=== PATIENT | female | born 1975 | race Caucasian/White ===

== ENCOUNTER 2022-04-30 15:03 | Outpatient (CLI) | payer BC, SELFPAY ==
[2022-04-30 22:06] LABS: C Reactive Protein* < 0.5 mg/dL (0.5-1.0)
== END 2022-04-30 15:04 | disposition home or self-care (01) ==
LOC: LKVREF 15:05
PROVIDERS: PCP Emergency Medicine; Visit Provider Emergency Medicine
DX: R07.81 Pleurodynia (principal)
CPT/HCPCS: 86140

== ENCOUNTER 2022-12-11 12:49 | Outpatient (CLI) | payer BC, SELFPAY ==
--- NOTE | 2022-12-11 13:00 | CRLHL7_ITS ---
For Patients: As a result of the Century Cures Act, medical imaging exams and procedure reports are released immediately into your electronic medical record. You may view this report before your referring provider. If you have questions, please contact your health care provider. INDICATION: Neck pain. Cervical radiculopathy. TECHNIQUE: Noncontrast sagittal T1, T2, STIR and axial GRE sequences are provided. No comparisons. FINDINGS: The overall stature, alignment and intrinsic marrow signal of the cervical spine is within normal limits. Cervical cord is normal. C2-3, C3-4, C4-5: Unremarkable. C5-6: Mild disc osteophyte complex results in mild central canal narrowing. Moderate bilateral foraminal narrowing due to uncovertebral joint facet arthropathy. C6-7: Asymmetric uncovertebral joint and facet arthropathy results in mild to moderate left and no right foraminal narrowing. No central canal narrowing. C7-T1: Unremarkable. IMPRESSION: 1. Mild central canal narrowing with moderate bilateral foraminal narrowing at C5-6. 2. Mild to moderate left C6-7 foraminal narrowing. Dictated by Chidi Kennedy MD @ 12/11/2022 3:50:42 PM (Electronically Signed)
== END 2022-12-11 12:50 | disposition home or self-care (01) ==
LOC: MRI 12:50
PROVIDERS: Visit Provider Internal Medicine
DX: M54.12 Radiculopathy, cervical region (principal); M50.223 Other cervical disc displacement at C6-C7 level; M50.222 Other cervical disc displacement at C5-C6 level
CPT/HCPCS: 72141

== ENCOUNTER 2023-04-06 09:25 | Outpatient (CLI) | payer BC, SELFPAY ==
--- OUTSIDE RECORDS SUMMARY | 2023-04-06 09:29 | XMS_ITS | Continuity of Care Document ---
Author Name Unknown Organization [facility] Address [address] [place] [address] Phone Care Team Providers Care Ignition Expert Name Role Phone Dc Laguna MD Unavailable Unavailable Procedures Procedure Date Office/Outpatient Visit,[facility] 2022 Advance Directives Directive Yes / No Effective Date File Name No Information Encounters Encounter Description Practice Location Reason(s) For Visit Diagnoses Date Provider Providers Copied on Encounter Office/Outpat ient Visit,[facility], [address], [place], [place], [id number], [place] tel:[phone] [facility] Other cervical disc displacement, cervicothoracic region 3 Jase Irwin. [facility], [address] [place] [address], [address], [id number] , [place]. tel:[phone] [facility] [address], [address]. tel:[phone] Family History Family Member Type Diagnosis Age At Onset No Information Payers Payer name Insurance type Covered democrat ID Authoriza tion(s) [facility] Federal BL [id number] Social History Type Description Quantity Date Captured Comments Sex Female Smoking Status No Information Vital Signs Date / Time: Height Weight BMI Pulse Rate Blood Pressure Temperature Respiratory Rate Body Surface Area Head Circumference Head Circ. Percentile Wt./Rohit. Percentile BMI percentile Pulse Ox Inhaled Ox 2:17 PM 66.00 in 74.843 kg (165.00 lbs) 26.6 3 kg/m eter (2) Chief Complaint And Reason For Visit No Information Reason For Referral Reason For Referral No Information History Of Present Illness Encounter Date Complaint History Of Prese nt Illness No Information Functional Status Date Functional Assessmen t No Information Instructions Date Instruction Additional Infor mation No Information Assessments Type Assessment Date No Information Patient Care Teams Name Effective Dates (start - stop) Status Members No Information
--- OUTSIDE RECORDS SUMMARY | 2023-04-06 09:29 | XMS_ITS | Continuity of Care Document ---
Author Name Unknown Organization [facility] Address [address] [address] Phone Care Team Providers Care Junior Graphic Designer Name Role Phone Clarence Carson MD Unavailable Unavailable Procedures Procedure Date Ophth Serv: Med Exam; Interm E Ophth Serv: Exam-eval; Interme 06 Advance Directives Directive Yes / No Effective Date File Name Resuscitation Not Answered N/A N/A Life Support Not Answered N/A N/A Intubation Not Answered N/A N/A Antibiotics Not Answered N/A N/A IV Fluid Support Not Answered N/A N/A Tube Feed Not Answered N/A N/A Other Directive N/A N/A WARNING:The information contained in this section is historical and is provided for information only and does not constitute a legal document or any assurance that the information is still accurate. Please verify the information with the laguerre of the legal document before using it for clinical purposes. Encounters Encounter Description Practice Location Reason(s) For Visit Diagnoses Date Provider Providers Copied on Encounter [facility], [address] [place] [address], [id number], tel:[phone] [facility] No Information Yamileth Lima. [address] [place] [address], [id number], [place]. tel:[phone], [id number], [place] tel:[phone] [facility] No Information Yamileth Lima. [address] [place] [address], [id number], [place]. tel:[phone] Family History Family Member Type Diagnosis Age At Onset Problem (finding) Family history of No known significant family history Payers Payer name Insurance type Covered alliance party ID Marcela corona(s) [facility] [id number] Social History Type Description Quantity Date Captured Comments Alcohol Use Details Unknown Caffeine Use Details Unknown Tobacco Use Status No Information Smoking Status No Information Sex Female Chief Complaint And Reason For Visit No Information Reason For Referral Reason For Referral No Information History Of Present Illness Encounter Date Complaint History Of Prese nt Illness No Information Functional Status Date Functional Assessmen t No Information Instructions Date Instruction Additional Infor mation Dry Eye Syndrome, OU - Inserted punctal plugs without any complications. Pt to use Tobradex ou qid. Related to Dry Eye Syndrome Dry Eye Syndrome, OU - unstable - Discussed diagnosis in detail with patient. Discussed treatment options with patient. Discussed restasis and punctal plugs at length. Dr. Carson recommend punctal plugs. Patient showed interest in corrective vision sx. Discussed that a previous doctor said corneas were too thin for LASIK, Dr. Carson explained PRK. Will continue to observe condition and or symptoms. Patient instructed to call if condition gets worse. Related to Dry Eye Syndrome Assessments Type Assessment Date No Information Patient Care Teams Name Effective Dates (start - stop) Status Members No Information
== END 2023-04-06 09:26 | disposition home or self-care (01) ==
PROVIDERS: PCP Family Medicine; Visit Provider Family Medicine
DX: R73.9 Hyperglycemia, unspecified (principal); K90.0 Celiac disease; R53.83 Other fatigue; R94.5 Abnormal results of liver function studies; Z13.220 Encounter for screening for lipoid disorders
CPT/HCPCS: 80053; 80061; 82306; 82607; 82728; 84443

== ENCOUNTER 2023-06-22 14:15 | Outpatient (CLI) | payer BC, SELFPAY ==
--- NOTE | 2023-06-22 14:40 | MM_ITS ---
Patient: DANIEL JOHNSON Facility:?[facility] Patient ID:?[id number] Site Patient ID:?[id number] Site :?1975 Study:?XRay-Breast Bilateral 3D W/CAD-06/22/2023 2:17:20 PM Ordering Physician:Alex Final Report: BILATERAL SCREENING MAMMOGRAM WITH COMPUTER-AIDED DETECTION AND TOMOSYNTHESIS TECHNIQUE: CC and MLO views were obtained. These mammographic images have been obtained using full-field digital technique. These mammographic images were interpreted with the benefit of computer-aided detection. Breast Tomosynthesis was used in this interpretation. COMPARISON FILM: 06/24/22, 04/07/21, 01/29/20. FINDINGS: There are scattered areas of fibroglandular density. IMPRESSION: There is no radiographic evidence for malignancy. ASSESSMENT: BI-RADS Category 1: Negative RECOMMENDATION: Routine screening mammogram in 1 year. A lay language report of this examination will be provided to the patient. Damon Maguire M.D. Diagnostic Radiologist [email or web address] DSM/sp R& Transcribed: 1:37 p.m. SP/Dictated by: Damon Maguire MD @ 06/29/2023 9:21:00 AM Signed by:?Damon Maguire MD @06/29/2023 1:45:45 PM (Electronic Signature)
== END 2023-06-22 14:16 | disposition home or self-care (01) ==
LOC: MAMMO 14:16
PROVIDERS: PCP Internal Medicine; Visit Provider Internal Medicine
DX: Z12.31 Encounter for screening mammogram for malignant neoplasm of breast (principal)
CPT/HCPCS: 77063; 77067

== ENCOUNTER 2023-07-19 08:09 | Outpatient (CLI) | payer BC, SELFPAY ==
--- OUTSIDE RECORDS SUMMARY | 2023-07-19 08:12 | XMS_ITS | Referral Summary ---
Author Name Unknown Organization [facility] Address [address] [place] [address] Care Team Providers Care Binding Nicker Name Role Phone Elsewhere, Pcp Primary Care Provider Unavailabl e Source Comments Patient records contain information from all sites at [facility]. For routine questions regarding patient records, call [phone] during business hours, M-F 8:00 AM - 5:00 PM Central Time. Record requests for emergency care only can be directed to [phone] at any time.[facility] Encounters Date Type Department Care Team Description 05/27/2023 Orders Only Division of Gastroenterology in [place], [place] [address] [place] [address] Jayden Vieyra M.D. Genetic Susceptibility To Disease from Last 3 Months Allergies Active Allergy Reactions Criticality Noted Date Comments Bee Venom Protein (Honey Bee) Hives (Reselect Reaction) High 09/26/2018 Medications Medication Sig Dispensed Refills Start Date End Date Status EPINEPHrine (EPIPEN) 0.3 mg/0.3 mL injection syringe Inject 0.3 mg intramuscularly as needed for anaphylaxis. Inject into the thigh. 0 Active linaCLOtide (Linzess) 72 mcg capsule Take 1 capsule (72 mcg total) by mouth every morning before breakfast. May escalate to 2/day if no effect 45 capsule 11 11/19/2021 Active citalopram (CeleXA) 20 mg tablet Take 20 mg by mouth daily. 30 mg // tabs daily 0 10/30/2022 Active testosterone (testoserone in Vanicream) Apply 10 mg of testosterone topically daily. 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 12/27/2018 Incontinence Urinary Stress And Urge 12/26/2018 Cystocele Rectocele With Uterine Prolapse 2018 Celiac Disease 03/30/2016 Immunizations Name Administration Dates Next Due HepA Adult 02/18/1996 HepA, Unspecified 02/18/1996,12/16/1993 HepB Adult 02/18/1996,05/13/1994,12/16/1993 HepB, Unspecified 02/18/1996,05/13/1994 Influenza (IM) Preservative Free 02/14/2013,04/13 Influenza, Unspecified 02/14/2013,05/04/2012 MMR 12/21/1990 SARS-COV-2 (COVID-19) - EMIGDIO ELIZABETH (J&J)(Discontinued) 06/24/2020 Td (Adult), adsorbed 05/21/2006 Td Preservative Free (TENIVAC, DECAVAC) 05/21/19 07 Tdap 01/31/2016,10/21/2012 Social History Tobacco Use Types Packs/Day Years Used Date Smoking Tobacco: Never Smokeless Tobacco: Never Tobacco Cessation:Counseling Given: Not Answered Alcohol Use Standard Drinks/Week Comments Yes 1 (1 standard drink = 0.6 oz pur e alcohol) Humiliation, Afraid, Rape, and Kick questionnair e Answer Date Recorded Within the last year, have y ou been afraid of your partner or ex-partner? No 11/19/2021 Within the last year, have y ou been humiliated or emotionally abused in other ways by your partner or ex-partner? No Within the last year, have y ou been kicked, hit, slapped, or otherwise physically hurt by your partner or ex-partner? No 11/19/2021 Within the last year, have y ou been raped or forced to have any kind of sexual activity by your partner or ex-partner? No 11/19/2021 Social Connection and Isolat ion Panel [NHANES] Answer Date Recorded In a typical week, how many times do you talk on the phone with family, friends, or neighbors? More than three times a week 11/19/2021 How often do you get togethe r with friends or relatives? More than three times a week 11/19/2021 Attends Faith Services Not on file 11/19 Do you belong to any clubs o r organizations such as nondenominational groups, unions, fraternal or athletic groups, or school groups? Yes 11/19/2021 How often do you attend meet ings of the clubs or organizations you belong to? Never 11/19/2021 Are you , , di vorced, , never , or living with a partner? 11/19/2021 AUDIT-C Answer Date Recorded Q1: How often do you have a drink containing alc ohol? Monthly or less 11/19/2021 Q2: How many drinks containi ng alcohol do you have on a typical day when you are drinking? 1 or 2 11/19/2021 Q3: How often do you have si x or more drinks on one occasion? Never 11/19/2021 Overall Financial Resource Strain (CARDIA) Answe r Date Recorded How hard is it for you to pa y for the very basics like food, housing, medical care, and heating? Not hard at all 11/19/2021 [facility] - Occupational Stress Questionnaire Answer Date Recorded Do you feel stress - tense, restless, nervous, or anxious, or unable to sleep at night because your mind is troubled all the time - these days? Rather much 11/19/2021 Exercise Vital Sign Answer Date Recorde d On average, how many days pe r week do you engage in moderate to strenuous exercise (like a brisk walk)? 4 days 11/19/2021 On average, how many minutes do you engage in exercise at this level? 30 min 11/19/2021 Hunger Vital Sign Answer Date Recorded Within the past 12 months, y ou worried that your food would run out before you got the money to buy more. Never true 11/20/19 22 Within the past 12 months, t he food you bought just didn't last and you didn't have money to get more. Never true 11/19/2021 PRAPARE - Transportation Answer Date Re corded In the past 12 months, has l ack of transportation kept you from medical appointments or from getting medications? No 11/10 In the past 12 months, has l ack of transportation kept you from meetings, work, or from getting things needed for daily living? No 11/19/2021 Housing Stability Vital Sign Answer Colin e Recorded In the last 12 months, was t here a time when you were not able to pay the mortgage or rent on time? No 11/19/2021 In the last 12 months, how many places have you lived? 1 11/19/2021 In the last 12 months, was t here a time when you did not have a steady place to sleep or slept in a care home (including now)? No 11/19/2021 Nutrition Answer Date Recorded Nutrition: EVOO Fat Source Yes 11/19 On average, how many serving s of fruits and vegetables do you eat per day (serving size is equal to 1 cup or approximately the size of a tennis ball)? 2-3 11/19/2021 Dental Answer Date Recorded Dental: Regular Dentist Yes 11/20/19 Employment Answer Date Recorded Employment status Employed and actively working without restrictions 11/19/2021 Education Answer Date Recorded What is the highest level of school you have completed or the highest degree you have received? Associate degree: academic program 02/21/2020 Sex and Gender Information Value Date Recorded Sex Assigned at Female 04/29/2018 7:45 PM FIRE CONTROL TECHNICIAN G Gender Identity Female 04/29/2018 7:45 PM FIRE CONTROL TECHNICIAN G Sexual Orientation Straight 04/29/2018 7: 45 PM FIRE CONTROL TECHNICIAN G Last Filed Vital Signs Vital Sign Reading Time Taken Comments Blood Pressure 109/71 11/06/2022 9:06 AM CDT Pulse 73 11/06/2022 9:06 AM CDT Temperature 36.8 ??C (98.2 ??F) 11/06/2022 9:06 AM CD T Respiratory Rate 16 11/05/2020 1:54 PM CDT Oxygen Saturation 99% 11/06/2022 9:06 AM CDT Inhaled Oxygen Concentration - - Weight 77.6 kg (171 lb 1.2 oz) 11/06/2022 9:06 A M CDT Height 169.3 cm (5' 6.65) 11/06/2022 9:06 AM CD T Body Mass Index 27.07 11/06/2022 9:06 AM CDT Plan of Treatment Not on file Medical Devices Implanted Type Area Wire Strander Device Identifier Shelf Expiration Date Model / Serial / Lot [facility] Ult [employer] 6x6 - [id number] Implanted:Qty: 1 on 12/26/2018 by Nicholas Parsons M.D. at [facility] Mesh or Patch [employer] 11/10/2023 [id number] / / [id number] Sling Transvag Mid-Ureth Quang - [id number] Implanted:Qty: 1 on 12/26/2018 by Nicholas Parsons M.D. at [facility] Mesh or Patch [employer] 09/29/2021 [id number] / / [id number] Advance Directives For more information, please contact: [phone] Documents on File Type Date Recorded Patient Grocery Buyer Expl anation Advance Directives 10/11/2009 12:00 AM Lega judy document. See document viewer. * Full Code (Latest Code Status on File) Date Activated Date Inactivated Comments 12/26/2018 4:30 PM 12/27/2018 7:44 PM Question Answer Comments Full Code: Discussed Care Teams Binding Nicker Relationship Specialty Start Date End Date Elsewhere, Pcp PCP - General Internal Medicine 10/28/18
--- OUTSIDE RECORDS SUMMARY | 2023-07-19 08:12 | XMS_ITS | Encounter Summary ---
Author Name Unknown Organization [facility] Address [address] [place] [address] Care Team Providers Care Knitting Machine Tender Name Role Phone Elsewhere, Pcp Primary Care Provider Unavailabl e Encounter Details Date Type Department Care Team (Late st Contact Info) Description 05/14/2008 Historical Ophthalmology RST OPH Darlene Wei O.D. [address] [place] [address] Social History Tobacco Use Types Packs/Day Years Used Date Smoking Tobacco: Never Assessed Sex and Gender Information Value Date Recorded Sex Assigned at Female 04/29/2018 7:45 PM MEDICAL SALES CONSULTANT Gender Identity Female 04/29/2018 7:45 PM MEDICAL SALES CONSULTANT Sexual Orientation Straight 04/29/2018 7: 45 PM MEDICAL SALES CONSULTANT documented as of this encounter Progress Notes * Darlene Wei O.D. - 05/14/2008 1:43 PM CST Contact Lens Exam MULTI-VISIT DOCUMENT This document contains multiple patient visits and is available for review in Document Viewer. CDM Reports - EYECL Id: [id number] Status: Fnl documented in this encounter Plan of Treatment Not on file documented as of this encounter Visit Diagnoses Not on filedocumented in this encounter Care Teams Knitting Machine Tender Relationship Specialty Start Date End Date Elsewhere, Pcp PCP - General Internal Medicine 10/28/18 documented as of this encounter
--- OUTSIDE RECORDS SUMMARY | 2023-07-19 08:12 | XMS_ITS | Clinical Summary ---
Author Name Unknown Organization [facility] Address [address] [place] [address] Care Team Providers Care Weight Reducing Technician Name Role Phone Elsewhere, Pcp Primary Care Provider Unavailabl e Source Comments Patient records contain information from all sites at [facility]. For routine questions regarding patient records, call [phone] during business hours, M-F 8:00 AM - 5:00 PM Central Time. Record requests for emergency care only can be directed to [phone] at any time.[facility] Allergies Active Allergy Reactions Criticality Noted Date [...] With Uterine Prolapse 2018 Celiac Disease 03/30/2016 Encounters Date Type Department Care Team Description 05/27/2023 Orders Only Division of Gastroenterology in [place], [place] [address] [place] [address] Jayden Vieyra M.D. Genetic Susceptibility To Disease from Last 3 Months Immunizations Name Administration Dates Next Due HepA [...] than three times a week 11/19/2021 Attends Taoism Services Not on file 11/19 Do you belong to any clubs o r organizations such as methodist groups, unions, fraternal or athletic groups, or [...] and heating? Not hard at all 11/19/2021 [facility] - Occupational Stress [...] Sex Assigned at Female 04/29/2018 7:45 PM PUSH BENCH OPERATOR HELPER Gender Identity Female 04/29/2018 7:45 PM PUSH BENCH OPERATOR HELPER Sexual Orientation Straight 04/29/2018 7: 45 PM PUSH BENCH OPERATOR HELPER Last Filed Vital Signs Vital Sign Reading [...] 11/06/2022 9:06 AM CDT Plan of Treatment Health Maintenance Due Date Last Done Comments CT Colonography 1975 Cologuard 1975 FIT 1975 Hepatitis C Screening 1975 COVID-19 Vaccine (3 - season) 2022 02/25/2021, 06/24/2020 Fasting Glucose for Diabetes Screening 01/02/2023 01/03/2020, 05/02/2018, 12/29/2011 Influenza Vaccine (#1) 2023 3, 02/14/2013, 05/04/2012, Additional history exists Depression Screening (Annual PHQ-2) 04/12/2023 Mammogram 06/25/2023 06/24/2022, 12/10/2020, 01/29/2020, Additional history exists Lipid (Cholesterol) Screening 01/02/2025 01/03/2020, 05/02/2018, 12/29/2011 DTaP,Tdap,and Td Vaccines (3 - Td or Tdap) 01/30/2026 01/31/2016, 10/21/2012, 05/21/2006, Additional history exists Colonoscopy 05/13/2028 05/13/2018, 0204/2018, 06/27/2007, Additional history exists Colorectal Cancer Screening 05/13/2028 Hepatitis A Vaccines Completed 02/18/1996, 02/18/1996, 12/16/1993 Hepatitis B Vaccines Completed 02/18/1996, 02/18/1996, 05/13/1994, Additional history exists HIV Screening Completed 07/16/2008 Pneumococcal vaccine (0-64 years) Aged Out No longer eligible based on patient's age to complete this topic Medical Devices Implanted Type Area Newsagent Device Identifier Shelf Expiration Date Model / Serial / Lot [facility] Polyprp [facility] 6x6 - [id number] Implanted:Qty: 1 on 12/26/2018 by Nicholas Parsons M.D. at [facility] Mesh or Patch [employer] 11/10/2023 [facility] / / [id number] Sling Transvag Mid-Ureth Quang - [id number] Implanted:Qty: 1 on 12/26/2018 by Nicholas Parsons M.D. at [facility] Mesh or Patch [employer] 09/29/2021 [id number] V / / [id number] Advance Directives For more information, please contact: [phone] Documents on File Type Date Recorded Patient Brand Inspector Expl anation Advance Directives 10/11/2009 12:00 AM Lega cy document. See document viewer. * Full Code (Latest Code Status on File) Date Activated Date Inactivated Comments 12/26/2018 4:30 PM 12/27/2018 7:44 PM Question Answer Comments Full Code: Discussed Care Teams Weight Reducing Technician Relationship Specialty Start Date End Date Elsewhere, Pcp PCP - General Internal Medicine 10/28/18
--- OUTSIDE RECORDS SUMMARY | 2023-07-19 08:12 | XMS_ITS | Encounter Summary ---
Author Name Unknown Organization [facility] Address [address] [place] [address] Care Team Providers Care Wastewater Superintendent Name Role Phone Elsewhere, Pcp Primary Care Provider Unavailabl e Encounter Details Date Type Department Care Team (Late st Contact Info) Description 06/17/2009 Historical Ophthalmology RST O[facility] [place] [address] Social History Tobacco Use Types Packs/Day Years Used Date Smoking Tobacco: Never Assessed Sex and Gender Information Value Date Recorded Sex Assigned at Female 04/29/2018 7:45 PM PORT ENGINEER Gender Identity Female 04/29/2018 7:45 PM PORT ENGINEER Sexual Orientation Straight 04/29/2018 7: 45 PM PORT ENGINEER documented as of this encounter Progress Notes * Estevan Beltran M.D. - 06/17/2009 7:55 AM CST Eye General CHIEF COMPLAINT Dry eyes HISTORY OF PRESENT ILLNESS Dryness; both eyes ; x several years; constantly; symptoms are moderate. Patient denies flashes, floaters, diplopia, Patient denies ocular pain. Cant wear contacts for more than a few hours, mouth jp little dry too. Has celiac disease IMPRESSION / REPORT / PLAN #1 dry eyes we put in 0.7 mm punctal plugs today #2 chronic blepharitis warm compresses lid hygiene #3 giant papillary conjunctivitis DIAGNOSIS #1 dry eyes #2 chronic blepharitis #3 giant papillary conjunctivitis [facility] Reports - EYEGEN Id: [id number] Status: Fnl documented in this encounter Plan of Treatment Not on file documented as of this encounter Visit Diagnoses Not on filedocumented in this encounter Care Teams Wastewater Superintendent Relationship Specialty Start Date End Date Elsewhere, Pcp PCP - General Internal Medicine 10/28/18 documented as of this encounter
--- OUTSIDE RECORDS SUMMARY | 2023-07-19 08:12 | XMS_ITS | Encounter Summary ---
Author Name Unknown Organization [facility] Address [address] [place] [address] Care Team Providers Care Educational Guidance Counselor Name Role Phone Elsewhere, Pcp Primary Care Provider Unavailabl e Encounter Details Date Type Department Care Team (Late st Contact Info) Description 06/05/2009 Historical Ophthalmology RST OPH Aziza Ng O.D. [address] [place] [address] Social History Tobacco Use Types Packs/Day Years Used Date Smoking Tobacco: Never Assessed Sex and Gender Information Value Date Recorded Sex Assigned at Female 04/29/2018 7:45 PM CHORAL DIRECTOR Gender Identity Female 04/29/2018 7:45 PM CHORAL DIRECTOR Sexual Orientation Straight 04/29/2018 7: 45 PM CHORAL DIRECTOR documented as of this encounter Progress Notes * Aziza Ng O.D. - 06/05/2009 12:52 PM CST Eye General CHIEF COMPLAINT Dry eyes HISTORY OF PRESENT ILLNESS Primarily a spectacles lens wearer; from 2009 or 2008; distance blur during ; feels like vision has returned to normal. Wears soft contacts emergency department coordinator; not by choice; lenses are uncomfortable; dry eyes. Reports no pain; flashing lights; floaters; or diplopia. Interested in punctal plugs again; or her other options. IMPRESSION / REPORT / PLAN #1 Refractive error (myopic astigmatism, slight hyperopic shift). Plan: spectacle prescription (Refraction 1) given, change demonstrated and discussed. Contact lens refit initiated. #2 Dry eye syndrome both eyes, chronic problem. Plan: patient requests consultation with Dr. Beltran to consider replacing punctal plugs vs. cautery. Recommended examination q 1-2 yeasr or PRN. DIAGNOSIS #1 Refractive error (myopic astigmatism, slight hyperopic shift). #2 Dry eye syndrome both eyes, chronic problem. CDM Reports - EYEGEN Id: [id number] Status: Fnl documented in this encounter Plan of Treatment Not on file documented as of this encounter Visit Diagnoses Not on filedocumented in this encounter Care Teams Educational Guidance Counselor Relationship Specialty Start Date End Date Elsewhere, Pcp PCP - General Internal Medicine 10/28/18 documented as of this encounter
--- OUTSIDE RECORDS SUMMARY | 2023-07-19 08:12 | XMS_ITS ---
Author Name Unknown Organization [facility] Address [address] [place] [address] Care Team Providers Care Cloth Doffer Name Role Phone Unavailable Unavailable Unavailable Surgery Details Not on file Complications Check Surgery Details section. Procedure Estimated Blood Loss Check Surgery Details section. Procedure Findings Check Surgery Details section. Procedure Specimens Taken Check Surgery Details section.
--- OUTSIDE RECORDS SUMMARY | 2023-07-19 08:12 | XMS_ITS | Encounter Summary ---
Author Name Unknown Organization [facility] Address [address] [place] [address] Care Team Providers Care Client Support Analyst Name Role Phone Elsewhere, Pcp Primary Care Provider Unavailabl e Encounter Details Date Type Department Care Team (Late st Contact Info) Description 06/21/2009 Historical Ophthalmology RST OPH Aziza Ng O.D. [address] [place] [phone] Social History Tobacco Use Types Packs/Day Years Used Date Smoking Tobacco: Never Assessed Sex and Gender Information Value Date Recorded Sex Assigned at Female 04/29/2018 7:45 PM CASE LINER Gender Identity Female 04/29/2018 7:45 PM CASE LINER Sexual Orientation Straight 04/29/2018 7: 45 PM CASE LINER documented as of this encounter Progress Notes * Aziza Ng O.D. - 06/21/2009 4:15 PM CST Contact Lens Exam MULTI-VISIT DOCUMENT This document contains multiple patient visits and is available for review in Document Viewer. CDM Reports - EYECL Id: [id number] Status: Fnl documented in this encounter Plan of Treatment Not on file documented as of this encounter Visit Diagnoses Not on filedocumented in this encounter Care Teams Client Support Analyst Relationship Specialty Start Date End Date Elsewhere, Pcp PCP - General Internal Medicine 10/28/18 documented as of this encounter
--- OUTSIDE RECORDS SUMMARY | 2023-07-19 08:12 | XMS_ITS | Encounter Summary ---
Author Name Unknown Organization [facility] Address [address] [place] [address] Care Team Providers Care Biology Tutor Name Role Phone Elsewhere, Pcp Primary Care Provider Unavailabl e Encounter Details Date Type Department Care Team (Late st Contact Info) Description 10/18/2002 Historical Ophthalmology RST OPH [place] [address] Social History Tobacco Use Types Packs/Day Years Used Date Smoking Tobacco: Never Assessed Sex and Gender Information Value Date Recorded Sex Assigned at Female 04/29/2018 7:45 PM LADLE CLEANER Gender Identity Female 04/29/2018 7:45 PM LADLE CLEANER Sexual Orientation Straight 04/29/2018 7: 45 PM LADLE CLEANER documented as of this encounter Progress Notes * Estevan Beltran M.D. - 10/18/2002 12:00 AM CDT Eye General CHIEF COMPLAINT Dry eyes HISTORY OF PRESENT ILLNESS OU irritated and dry. Pt. can only wear CL for a short period of time. No blurred vision. Has irritated eyes for the past year worse in last month. Has disposable lenses, daily wear, throws after a month. Some discharge, but bad photophobia IMPRESSION / REPORT / PLAN #1 mild giant papillary conjunctivitis lets hold off contacts for a month. Use preservative free artificial tears...she'll call with results DIAGNOSIS #1 mild giant papillary conjunctivitis CDM Reports - EYEGEN Id: [id number] Status: Fnl documented in this encounter Plan of Treatment Not on file documented as of this encounter Visit Diagnoses Not on filedocumented in this encounter Care Teams Biology Tutor Relationship Specialty Start Date End Date Elsewhere, Pcp PCP - General Internal Medicine 10/28/18 documented as of this encounter
--- OUTSIDE RECORDS SUMMARY | 2023-07-19 08:12 | XMS_ITS | Encounter Summary ---
Author Name Unknown Organization [facility] Address [address] [place] [address] Care Team Providers Care Feed Mill Tender Name Role Phone Elsewhere, Pcp Primary Care Provider Unavailabl e Encounter Details Date Type Department Care Team (Late st Contact Info) Description 04/20/2007 Historical Ophthalmology RST OPH Aziza Ng O.D. [address] [place] [address] Social History Tobacco Use Types Packs/Day Years Used Date Smoking Tobacco: Never Assessed Sex and Gender Information Value Date Recorded Sex Assigned at Female 04/29/2018 7:45 PM GLASS CLEANER Gender Identity Female 04/29/2018 7:45 PM GLASS CLEANER Sexual Orientation Straight 04/29/2018 7: 45 PM GLASS CLEANER documented as of this encounter Progress Notes * Aziza Ng O.D. - 04/20/2007 9:25 AM CST Eye General CHIEF COMPLAINT Eyes feel dry with contacts. Both eyes get red, puffy, goopy periodically since October 2006. HISTORY OF PRESENT ILLNESS History of dry eyes. Patient wears contact lenses occasionally. She currently wears AcuVue Oasys, but feels that they become tight with wear. She is using a variety of drops/lubricants to relieve dry eye symptoms (some are preserved). Her vision is stable. Reports no other pain, flashes, floaters or diplopia. IMPRESSION / REPORT / PLAN #1 Dry eye syndrome both eyes, chronic problem. Plan: monitor periodically, use non-preserved artificial tears as needed to relieve symptoms. #2 Refractive error (myopia, stable). Plan: spectacle prescription (Refraction 1) given. Contact lens refit initiated. Annual examinations recommended. DIAGNOSIS #1 Dry eye syndrome both eyes, chronic problem. #2 Refractive error (myopia, stable). CDM Reports - EYEGEN Id: [id number] Status: Fnl documented in this encounter Plan of Treatment Not on file documented as of this encounter Visit Diagnoses Not on filedocumented in this encounter Care Teams Feed Mill Tender Relationship Specialty Start Date End Date Elsewhere, Pcp PCP - General Internal Medicine 10/28/18 documented as of this encounter
--- OUTSIDE RECORDS SUMMARY | 2023-07-19 08:12 | XMS_ITS | Encounter Summary ---
Author Name Unknown Organization [facility] Address [address] [place] [address] Care Team Providers Care Public Relations Sales Marketing Name Role Phone Elsewhere, Pcp Primary Care Provider Unavailabl e Encounter Details Date Type Department Care Team (Late st Contact Info) Description 05/14/2008 Historical Ophthalmology RST OPH Darlene Wei O.D. [address] [place] [address] Social History Tobacco Use Types Packs/Day Years Used Date Smoking Tobacco: Never Assessed Sex and Gender Information Value Date Recorded Sex Assigned at Female 04/29/2018 7:45 PM FORMULA CHECKER Gender Identity Female 04/29/2018 7:45 PM FORMULA CHECKER Sexual Orientation Straight 04/29/2018 7: 45 PM FORMULA CHECKER documented as of this encounter Progress Notes * Darlene Wei O.D. - 05/14/2008 1:02 PM CST Eye General CHIEF COMPLAINT contact prescription. HISTORY OF PRESENT ILLNESS Patient denies eye pain, flashing lights, floaters or diplopia. IMPRESSION / REPORT / PLAN #1 Dry eye syndrome both eyes, chronic problem. Plan: Monitor, use non-preserved artificial tears as needed to relieve symptoms. #2 Refractive error (myopic astigmatism, myopia). Plan: spectacle prescription (Refraction 1) given. RTC 2 years/prn. DIAGNOSIS #1 Dry eye syndrome both eyes, chronic problem. #2 Refractive error (myopic astigmatism, myopia). [facility] Reports - EYEGEN Id: [id number] Status: Fnl documented in this encounter Plan of Treatment Not on file documented as of this encounter Visit Diagnoses Not on filedocumented in this encounter Care Teams Public Relations Sales Marketing Relationship Specialty Start Date End Date Elsewhere, Pcp PCP - General Internal Medicine 10/28/18 documented as of this encounter
--- OUTSIDE RECORDS SUMMARY | 2023-07-19 08:12 | XMS_ITS | Encounter Summary ---
Author Name Unknown Organization [facility] Address [address] [place] [address] Care Team Providers Care Wood Heel Fitter Machine Name Role Phone Elsewhere, Pcp Primary Care Provider Unavailabl e Encounter Details Date Type Department Care Team (Late st Contact Info) Description 10/21/2006 Historical Ophthalmology RST OPH Rambo Medeiros M.D., Ph.D. [address] [place] [phone] (Work) Social History Tobacco Use Types Packs/Day Years Used Date Smoking Tobacco: Never Assessed Sex and Gender Information Value Date Recorded Sex Assigned at Female 04/29/2018 7:45 PM SHARPLES MACHINE OPERATOR Gender Identity Female 04/29/2018 7:45 PM SHARPLES MACHINE OPERATOR Sexual Orientation Straight 04/29/2018 7: 45 PM SHARPLES MACHINE OPERATOR documented as of this encounter Progress Notes * Rambo Medeiros M.D., Ph.D. - 10/21/2006 2:44 PM CDT Eye General CHIEF COMPLAINT itching left with vision change. HISTORY OF PRESENT ILLNESS 1 1/2 hours ago, patient states her left eye was itching and as she rubbed it, it was noted that the eye was red and looked like vaselline on it. Shortly thereafter, she noted her vision was extremely blurry and has difficulty focusing. She has some pain, but feels her eye is swollen and bothers when she blinks. IMPRESSION / REPORT / PLAN #1 Eye irritation Likely secondary to acute allergic reaction, mostly resolved Artificial tears 4x daily Call for appointment if symptoms become worse at any time or not better in 1 week. #2 Dry eye Artificial tears as above SPP: I have examined the patient with Dr. Medeiros and agree with the findings and plan as outlined above DIAGNOSIS #1 Eye irritation #2 Dry eye CDM Reports - EYEGEN Id: [id number] Status: Fnl documented in this encounter Plan of Treatment Not on file documented as of this encounter Visit Diagnoses Not on filedocumented in this encounter Care Teams Wood Heel Fitter Machine Relationship Specialty Start Date End Date Elsewhere, Pcp PCP - General Internal Medicine 10/28/18 documented as of this encounter
--- OUTSIDE RECORDS SUMMARY | 2023-07-19 08:12 | XMS_ITS | Encounter Summary ---
Author Name Unknown Organization [facility] Address [address] [place] [address] Care Team Providers Care Non Profit Director Name Role Phone Elsewhere, Pcp Primary Care Provider Unavailabl e Encounter Details Date Type Department Care Team (Late st Contact Info) Description 12/03/2003 Historical Ophthalmology RST OPH [place] [address] Social History Tobacco Use Types Packs/Day Years Used Date Smoking Tobacco: Never Assessed Sex and Gender Information Value Date Recorded Sex Assigned at Female 04/29/2018 7:45 PM SOCIAL MEDIA CONTENT SPECIALIST Gender Identity Female 04/29/2018 7:45 PM SOCIAL MEDIA CONTENT SPECIALIST Sexual Orientation Straight 04/29/2018 7: 45 PM SOCIAL MEDIA CONTENT SPECIALIST documented as of this encounter Progress Notes * Estevan Beltran M.D. - 12/03/2003 12:00 AM CDT Eye General CHIEF COMPLAINT dry eyes HISTORY OF PRESENT ILLNESS would like to get back into contacts. She has an appointment with our contact lens department this afternoon.Has not worn contacts much in the past year( maybe 5 times). The last time she wore lensesthey were still not right. Using tears every once in a while. Denies pain, tearing diplopia or floaters. She gets alot of headaches around the eyes. No migraine headache but has been seen in urgent care for an ocular migraine at home. IMPRESSION / REPORT / PLAN #1 myopia #2 resolved giant papillary conjunctivitis planning to see contact lens dept this afternoon. DIAGNOSIS #1 myopia #2 resolved giant papillary conjunctivitis CD Reports - EYEGEN Id: [id number] Status: Fnl documented in this encounter Plan of Treatment Not on file documented as of this encounter Visit Diagnoses Not on filedocumented in this encounter Care Teams Non Profit Director Relationship Specialty Start Date End Date Elsewhere, Pcp PCP - General Internal Medicine 10/28/18 documented as of this encounter
--- OUTSIDE RECORDS SUMMARY | 2023-07-19 08:12 | XMS_ITS | Continuity of Care Document ---
Author Name Unknown Organization [facility] Address [address] [place] [address] Phone Care Team Providers Care Consumer Lending Manager Name Role Phone Dc Laguna MD Unavailable Unavailable Procedures Procedure Date Office/Outpatient Visit,[facility] 2022 Advance Directives Directive Yes / No Effective Date File Name No Information Encounters Encounter Description Practice Location Reason(s) For Visit Diagnoses Date Provider Providers Copied on Encounter Office/Outpat ient Visit,[facility], [facility], [address], [place], [place], [id number], [place] tel:[phone] [facility] Other cervical disc displacement, cervicothoracic region 3 Jase Irwin. [facility] [place], [address] [place] [address], [address], [id number] , [place]. tel:[phone] [facility]erring Provider: [facility] [address] [place] [address], [address]. tel:[phone] Family History Family Member Type Diagnosis Age At Onset No Information Payers Payer name Insurance type Covered alliance party ID Authoriza tion(s) [facility] [employer] BL [id number] Social History Type Description Quantity Date Captured [...]
--- OUTSIDE RECORDS SUMMARY | 2023-07-19 08:12 | XMS_ITS | Encounter Summary ---
Author Name Unknown Organization [facility] Address [address] [place] [address] Care Team Providers Care Configuration Engineer Name Role Phone Elsewhere, Pcp Primary Care Provider Unavailabl e Encounter Details Date Type Department Care Team ([facility] st Contact Info) Description 05/27/2023 Orders Only Division of Gastroenterology in [place], [place] [address] [place] [address] Jayden Vieyra M.D. [address] [place] [address] Genetic Susceptibility To Disease Social History Tobacco Use Types Packs/Day Years Used Date Smoking Tobacco: Never Smokeless Tobacco: Never Alcohol Use Standard Drinks/Week Comments Yes 1 [...] than three times a week 11/19/2021 Attends [employer] Not on file 11/19 Do you belong to any clubs o r organizations such as voodoo groups, unions, fraternal or athletic groups, or [...] and heating? Not hard at all 11/19/2021 [facility] - Occupational [...] place to sleep or slept in a long-term (including now)? No 11/19/2021 Nutrition Answer Date [...] Sex Assigned at Female 04/29/2018 7:45 PM COOK FRUIT Gender Identity Female 04/29/2018 7:45 PM COOK FRUIT Sexual Orientation Straight 04/29/2018 7: 45 PM COOK FRUIT documented as of this encounter Plan of Treatment Not on file documented as of this encounter Procedures Procedure Name Priority Date/Time Associated Diagnosis Comments EXT TAPESTRY Routine 04/19/2021 12:00 AM COOK FRUIT Genetic Susceptibility To Disease documented in this encounter Results * EXT Tapestry (04/19/2021 12:00 AM COOK FRUIT) Gene Studied BRCA1,BRCA2,MLH1,MSH 2, MSH6,PMS2,EPCAM,APOB,L DLR,LDLRAP1,PCSK9 05/20/2021 12:00 AM COOK FRUIT AJ Genetic Disease Assessed Evaluation of 11 genes associated with Hereditary Breast and Ovarian Cancer, Valdez Syndrome and Familial Hypercholesterolemia. 05/20/2021 12:00 AM CD Diagnostics Genetic Analysis Overall Interpretation Negative results through Tapestry do not replace diagnostic testing for patients with a personal or family history of cancer/hypercholestero lemia due to limitations with methodology. Consider a referral to a genetic counselor for diagnostic testing if warranted. 05/20/2021 12:00 AM [employer] Genetic Analysis Report See Tapestry PDF Report No actionable gene changes were detected in the genes that cause Familial Hypercholesterolemia. The genes tested for this condition were APOB, LDLR, LDLRAP1, and PCSK9.No actionable gene changes were detected in the genes that cause Hereditary Breast and Ovarian Cancer. The genes tested for this condition were BRCA1 and BRCA2.No actionable gene changes were detected in the genes that cause Valdez Syndrome. The genes tested for this condition were MLH1, MSH2, MSH6, PMS2 and EPCAM. Clinical confirmation of pathogenic or likely pathogenic variants is advised prior to changing your medical care. Genetic counseling is recommended. This test is not intended to diagnose a disease, determine medical treatment, or to provide information about current state of health. This test is intended to provide users with their genetic information to inform lifestyle decisions and conversations with their doctor. Any diagnostic or treatment decisions should be based on testing and/or other information that your healthcare provider determines to be appropriate for you. DNA extracted from your saliva sample was captured and enriched using a custom set of reagents (Gracenote+ chemistry). Targeted regions were sequenced using an Illumina DNA sequencing system. Your sequence was matched to a modified version of the melbourne standard reference genome (GRCh38). Variant calling was completed using a customized version of [employer]'s TapRushq software, requiring 20x coverage for validated variant calls. Copy Number Variants (CNVs) were called using a proprietary bioinformatics pipeline that compared the coverage profile of your sample with the coverage profiles of other reference set samples. [facility] [employer] then analyzed the generated variant data for the exons and 10 bp of flanking intronic sequence (and select tagged intronic variants) of the 11 genes included in Oatmeal from the Precognate Database. Your sample was reviewed for single nucleotide variants (SNVs), indels up to 20 bp in length, and CNVs that are known or predicted to be actionable. NOTE: This assay has limited sensitivity to CNVs smaller than a few exons. APOB, PCSK9, and LDLR interpretation and reporting is specific to the Familial Hypercholesterolemia phenotype. Variants associated with other phenotypes such as Hypobetalipoproteinemi a are not included. Some known complex variants like the inversion of exons 1-7 in the MSH2 gene (Thompson inversion), exons 11-15 of the PMS2 gene, or variants within or immediately adjacent to long homopolymer runs are not analyzed or reported. There are regions that are not covered, such as deep intronic, promoter, and enhancer regions. This assay cannot detect all variants known to increase disease risk. Other clinical diagnostic testing for these conditions could identify variants not detected by this test. If you have had previous testing, these results should be taken into consideration during risk assessments and medical management. 05/20/2021 12:00 AM COOK FRUIT AJ Human Reference Sequence Assembly GRCh38 05/20/2021 12:00 AM COOK FRUIT AJ Saliva (Mouth) 04/19/2021 Jayden Vieyra M.D. LAB GENETI C TESTING [place] [address] [facility], [address] [place] [address], [facility] [address] [place] [address] [facility], [address] [place] [address] documented in this encounter Visit Diagnoses Diagnosis Genetic Susceptibility To Disease documented in this encounter Care Teams Configuration Engineer Relationship Specialty Start Date End Date Elsewhere, Pcp PCP - General Internal Medicine 10/28/18 documented as of this encounter
--- OUTSIDE RECORDS SUMMARY | 2023-07-19 08:12 | XMS_ITS | Encounter Summary ---
Author Name Unknown Organization [facility] Address [address] [place] [address] Care Team Providers Care Stud Driver Name Role Phone Elsewhere, Pcp Primary Care Provider Unavailabl e Encounter Details Date Type Department Care Team (Late st Contact Info) Description 05/17/2007 Historical Ophthalmology RST OPH Aziza Ng O.D. [address] [place] [phone] Social History Tobacco Use Types Packs/Day Years Used Date Smoking Tobacco: Never Assessed Sex and Gender Information Value Date Recorded Sex Assigned at Female 04/29/2018 7:45 PM MECHANICAL ENGINEERING TECHNICIAN Gender Identity Female 04/29/2018 7:45 PM MECHANICAL ENGINEERING TECHNICIAN Sexual Orientation Straight 04/29/2018 7: 45 PM MECHANICAL ENGINEERING TECHNICIAN documented as of this encounter Progress Notes * Aziza Ng O.D. - 05/17/2007 2:45 PM CST Contact Lens Exam MULTI-VISIT DOCUMENT This document contains multiple patient visits and is available for review in Document Viewer. CDM Reports - EYECL Id: [id number] Status: Fnl documented in this encounter Plan of Treatment Not on file documented as of this encounter Visit Diagnoses Not on filedocumented in this encounter Care Teams Stud Driver Relationship Specialty Start Date End Date Elsewhere, Pcp PCP - General Internal Medicine 10/28/18 documented as of this encounter
--- OUTSIDE RECORDS SUMMARY | 2023-07-19 08:12 | XMS_ITS | Encounter Summary ---
Author Name Unknown Organization [facility] Address [address] [place] [address] Care Team Providers Care Warehouse Associate Name Role Phone Elsewhere, Pcp Primary Care Provider Unavailabl e Encounter Details Date Type Department Care Team (Late st Contact Info) Description 03/09/2003 Historical Ophthalmology RST OPH Aziza Ng O.D. [address] [place] [phone] Social History Tobacco Use Types Packs/Day Years Used Date Smoking Tobacco: Never Assessed Sex and Gender Information Value Date Recorded Sex Assigned at Female 04/29/2018 7:45 PM EXCELSIOR MACHINE FEEDER Gender Identity Female 04/29/2018 7:45 PM EXCELSIOR MACHINE FEEDER Sexual Orientation Straight 04/29/2018 7: 45 PM EXCELSIOR MACHINE FEEDER documented as of this encounter Progress Notes * Aziza Ng O.D. - 03/09/2003 12:00 AM CST Contact Lens Exam MULTI-VISIT DOCUMENT This document contains multiple patient visits and is available for review in Document Viewer. CDM Reports - EYECL Id: [id number] Status: Fnl documented in this encounter Plan of Treatment Not on file documented as of this encounter Visit Diagnoses Not on filedocumented in this encounter Care Teams Warehouse Associate Relationship Specialty Start Date End Date Elsewhere, Pcp PCP - General Internal Medicine 10/28/18 documented as of this encounter
--- OUTSIDE RECORDS SUMMARY | 2023-07-19 08:13 | XMS_ITS | Clinical Summary ---
Author Name Unknown Organization [facility] Address [address] [place] [id number] Care Team Providers Care Interventional Radiology Tech Name Role Phone No Ref-Primary, Physician Primary Care Provider Allergies No known active allergies Medications Medication Sig Dispensed Refills Start Date End Date Status Vit-Fe Fumarate-FA ( MULTIVITAMIN PLUS IRON) 27-0.8 MG TABS per tablet Take 1 tablet by mouth daily 0 Active DOMPERIDONE 10 MG TAB/CAP 0 Active oxyCODONE-acetaminophe n (PERCOCET) 5-325 MG per tablet Take 1-2 tablets by mouth every 4 hours as needed for pain 15 tablet 0 05/31/2016 Active Resolved Problems Problem Noted Date Diagnosed Date Resolved Date Insulin controlled gestation al diabetes mellitus (GDM) in third trimester 02/03/20162016 Immunizations Name Administration Dates Next Due Influenza (IIV3) PF 05/04/2012 Social History Tobacco Use Types Packs/Day Years Used Date Smoking Tobacco: Never Alcohol Use Standard Drinks/Week Comments Yes 0 (1 standard drink = 0.6 oz pur e alcohol) Adolescent Education Answer Date Record ed Getting School Help Needed Not on file 01/01 Sex and Gender Information Value Date Recorded Sex Assigned at Not on file Gender Identity Not on file Sexual Orientation Not on file Last Filed Vital Signs Vital Sign Reading Time Taken Comments Blood Pressure 115/55 05/31/2016 12:37 PM AIRCRAFT ELECTRICIAN Pulse 75 05/31/2016 11:01 AM AIRCRAFT ELECTRICIAN Temperature 36.6 ??C (97.8 ??F) 05/31/2016 11:[address] Respiratory Rate 18 05/31/2016 11:01 AM AIRCRAFT ELECTRICIAN Oxygen Saturation 97% 05/31/2016 12:39 PM AIRCRAFT ELECTRICIAN Inhaled Oxygen Concentration - - Weight 81.9 kg (180 lb 8 oz) 05/28/2016 9:03 AM AIRCRAFT ELECTRICIAN Height 170.2 cm (5' 7) 05/28/2016 9:03 AM AIRCRAFT ELECTRICIAN Body Mass Index 28.27 05/28/2016 9:03 AM AIRCRAFT ELECTRICIAN Plan of Treatment Health Maintenance Due Date Last Done Comments ADVANCE CARE PLANNING 1976 ANNUAL REVIEW OF HM ORDERS 1976 CT COLONOGRAPHY 1976 FIT 1976 FLEX SIG 1976 GLUCOSE 1976 MAMMO SCREENING 1976 sDNA (Cologuard) 1976 COLONOSCOPY 1986 COLORECTAL CANCER SCREENING 1986 HIV SCREENING 10/30/1991 HEPATITIS C SCREENING 1994 PAP 1997 LIPID 2016 YEARLY PREVENTIVE VISIT 01/02/2021 01/03/2020 COVID-19 Vaccine ( season) 2022 06/24/2020 INFLUENZA VACCINE (#1) 2022 3, 02/14/2013, 05/04/2012, Additional history exists PHQ-2 (once per calendar year) 2023 DTAP/TDAP/TD IMMUNIZATION (3 - Td or Tdap) 01/30/2026 01/31/2016, 10/21/2012, 05/21/2006, Additional history exists HEPATITIS B IMMUNIZATION Completed 996, 02/18/1996, 05/13/1994, Additional history exists HPV IMMUNIZATION Aged Out No longer e ligible based on patient's age to complete this topic IPV IMMUNIZATION Aged Out No longer e ligible based on patient's age to complete this topic MENINGITIS IMMUNIZATION Aged Out No l onger eligible based on patient's age to complete this topic Pneumococcal Vaccine: Pediatrics (0 to 5 Years) and At-Risk Patients (6 to 64 Years) Aged Out No longer eligible based on patient's age to complete this topic RSV MONOCLONAL ANTIBODY Aged Out No l onger eligible based on patient's age to complete this topic Care Teams Interventional Radiology Tech Relationship Specialty Start Date End Date No Ref-Primary, Physician PCP - General 05/31/16
--- OUTSIDE RECORDS SUMMARY | 2023-07-19 08:13 | XMS_ITS | Clinical Summary ---
Author Name Unknown Organization [employer] [facility] Address [place], [place] [address] Care Team Providers Care Management Psychologist Name Role Phone Mica Pandey COMMISSARY REPRESENTATIVE Unavailable [phone] Consultants, [facility] Unavailable Vaneva Doug Campbell NP Primary Care Provider [phone] Allergies Active Allergy Reactions Criticality Noted Date Comments Venom-Honey Bee Hives High 09/26/2018 Medications Medication Sig Dispensed Refills Start Date End Date Status Ogees-1-ATG-EPA-Fish Oil (FISH OIL) 1,000 mg (120 mg-180 mg) cap Take by mouth. 0 12/21/2019 Active Zinc Sulfate 220 mg tablet Take 1 tablet by mouth once daily. 0 12/21/2019 Active medication order composer Vitamin B 12 1 tablet daily - OTC 0 01/03/2020 Active EPINEPHrine (EPIPEN 2-DAVY) 0.3 mg/0.3 mL injectionIndications :Bee sting, undetermined intent, subsequent encounter EpiPen 2-Davy 0.3 mg/0.3 mL injection, auto-injector 2 Each 1 01/03/2020 Active ergocalciferol (VITAMIN D2; DRISDOL) 50,000 unit capsuleIndications:L ow vitamin D level TAKE 1 CAPSULE BY MOUTH ONE TIME PER WEEK 12 Capsule 04/29/2021 Active bupropion HCl (WELLBUTRIN ORAL) Take by mouth. Act noa citalopram (CeleXA) 20 mg tablet Take 20 mg by mouth once daily. Active tretinoin 0.05 % 0.05 % creamIndications:Rika ar elastosis,Acne vulgaris apply a pea sized amount to the entire face at bedtime to affected area(s) starting every 3rd night and increase to every night as tolerated over several weeks. 45 g 3 02/22/2023 Active clindamycin 1% (CLEOCIN-T) 1 % lotionIndications:Ac ne vulgaris apply to the face1-2 times daily 60 mL 2 02/22/2023 Active Active Problems Problem Noted Date Diagnosed Date History of gestational diabetes 01/03/2020 Overview: / pregnancies with the last . On insulin. FH: diabetes mellitus 03/30/2016 Celiac disease 03/30/2016 Resolved Problems Problem Noted Date Diagnosed Date Resolved Date (spontaneous vaginal delivery) 03/30/2016 01/03/2020 Blood type B+ 03/30/2016 01/03/2020 Elderly multigravida in third trimester 03/23/2016 01/03/2020 Gestational diabetes mellitu s (GDM) in third trimester 01/31/2016 01/03/2020 Overview: Dating by : LMP c/w US at 19w4d Type of Gestation: Solorzano Screening: L1 wnl Immunizations: Declines flu TDaP: 01/30 Rh status:B Pos GCT: 3HourGTT F -88 1 Hr- 197, 2 Hr 195, 3Hr 117 LABS: declines 28 wk TPall (had at IOB, feels she is low risk) GBS: neg testing: weekly BPP 32-36. Twice weekly 36-39. APCC: deliver 39-40+6; growth every ~4 weeks (set up for 7:30 03/30 at 39+0) Problems: --(TATY from [facility] at 30+5) --GDMA2: humulin 18 U qHS at of 31wk. . Growth 02/04 at 31+3= 66%, 36+3 = 72%. Has seen endo & DM educator. --H/o 36w6d followed by term --H/o D&C for incomplete AB 04/2015, tri 15 [EHVP] --RLQ pain at TATY visit, amorphous cells in urine on micro, possible stone Decreased movement Insulin controlled gestation al diabetes mellitus (GDM) in third trimester 2019 Immunizations Name Administration Dates Next Due Hepatitis A, Unspecified 02/18/1996,12/16/1993 Hepatitis B, Unspecified 02/18/1996,05/13/1994 Influenza Virus, Unspecified 02/14/2013,05/04/19 13 MMR, Unspecified 12/21/1990 Td (Age >=7 Years) 05/21/2006 Tdap 01/31/2016,10/21/2012 Family History Medical History Relation Name Comments Asthma Brother 1 childhood Good Health Brother 2 Rheum arthritis Father Other Maternal Grandfather Alzheim er's Cancer Maternal Grandmother Neha dder Diabetes Mother Type 2 Heart attack Paternal Grandmother Cancer-breast No Family History Cancer-ovarian No Family History Relation Name Status Comments Brother 1 Alive Brother 2 Alive Father Alive Maternal Grandfather Maternal Grandmother Mother Alive Paternal Grandfather (Age 78) di ed during surgery Paternal Grandmother (Age 70) [place] Social History Tobacco Use Types Packs/Day Years Used Date Smoking Tobacco: Never Smokeless Tobacco: Never Alcohol Use Standard Drinks/Week Comments Yes 0 (1 standard drink = 0.6 oz pur e alcohol) PHQ-2 Answer Date Recorded PHQ-2 TOTAL SCORE 0 01/03/2020 Social Connections Answer Date Recorded Frequency of Communication with Friends and Fami ly Not on file 04/07/2021 Financial Resource Strain Answer Date R ecorded Difficulty of Paying Living Expenses Not on file 04/07/2021 Difficulty of Paying Living Expenses Not on file 04/07/2021 Sex and Gender Information Value Date Recorded Sex Assigned at Female 10/10/2019 9:37 PM CDT Gender Identity Female 10/10/2019 9:37 PM CDT Sexual Orientation Straight 10/10/2019 9: 37 PM CDT Obstetrics History Para Term AB IAB SAB Ectopic Multiple Livin g Live Births 4 3 2 1 1 0 1 0 0 3 3 Date Outcome GA Total Labor Labor/2nd/3rd Weight Sex Delivery Anes PTL Ashely A1 A5 Name Cl in 02/21 36w 6d 5h 00m/ 3.26 kg (7 lb 3 oz) M Vag-Spont Maribell ng Delivery Location:[facility] 11/23 Term 40w 0d 3.97 kg (8 lb 12 oz) M Vag Maribell ng 05/02 SAB 03/30 Term 39w 1d 3.32 kg (7 lb 5 oz) F Vag Epidu ral Maribell ng 9 9 ESTRADA -MASS EY,BG SHAHID SIDNEY Dr. Jess Scott Delivery Location:[facility] Last Filed Vital Signs Vital Sign Reading Time Taken Comments Blood Pressure 112/74 04/24/2021 12:27 PM SAFETY INVESTIGATOR Pulse 80 04/24/2021 12:27 PM SAFETY INVESTIGATOR Temperature 36.8 ??C (98.3 ??F) 04/24/2021 1 2:27 PM SAFETY INVESTIGATOR Respiratory Rate 18 04/01/2016 9:55 AM SAFETY INVESTIGATOR Oxygen Saturation 98% 03/31/2016 8:3 1 AM SAFETY INVESTIGATOR Inhaled Oxygen Concentration - - Weight 83.7 kg (184 lb 9.6 oz) 05/21/19 11:57 AM SAFETY INVESTIGATOR with shoes Height 168.9 cm (5' 6.5) 01/03/2020 8: 56 AM CDT Body Mass Index 29.35 01/03/2020 8:56 AM CDT Plan of Treatment Health Maintenance Due Date Last Done Comments HIV for age 15-65 10/30/1991 BMI (ht and wt on same day) for age 18+ 01/02/2021 01/03/2020, 09/09/2018, 01/31/2016, Additional history exists Depression screening for age 12+ 01/02/2021 01/03/2020, 09/09/2018, 02/12/2016, Additional history exists Colonoscopy through age 75 2021 COVID-19 vaccine series (2022- season) 2022 02/25/2021, 06/24/2020 Mammogram for age 45-75 06/25/2023 06/25/19, 04/07/2021, 01/29/2020 Influenza for age 9-49 12/12/2023 3 ([facility]), 02/14/2013, 05/04/2012 Lipids for age 45-75 01/02/2025 01/03/2020 Pap test for age 21-65 01/02/2025 0, 01/03/2020, 05/01/2014, Additional history exists Tetanus booster 01/30/2026 01/31/2016, 10/10, 05/21/2006 Hepatitis C screening for age 18-79 Completed 08/30/2012 Tdap Completed 01/31/2016, 10/21/2012 Pneumococcal series for age 6-64 Aged Out No longer eligible based on patient's age to complete this topic Procedures Procedure Name Priority Date/Time Associated Diagnosis Comments XR MAMMO FUNMILAYO BILAT SCREEN Routine 06/24/2022 10:22 AM CDT Visit for screening mammogram LIPID PANEL W REFLEX MEASURED LDL Routine 01/03/2020 9:55 AM CDT Routine general medical examination at a health care facility APARTMENT MAINTENANCE SUPERVISOR THIN PREP PAP SCREEN IMAGED Routine 01/03/2020 9:45 AM CDT Cervical cancer screening ANTI HCV Timed 08/30/2012 10:35 AM CDT from Last 3 Months or Most Recently Relevant to Health Maintenance Results * XR MAMMO FUNMILAYO BILAT SCREEN (06/24/2022 10:22 AM CDT) Anatomical Region Laterality Modality BREASTS, Breast Left, Breast Right Bilateral Mammography Impressions 06/24/2022 4:09 PM CDT ??There is no radiographic evidence for malignancy. ??Recommend annual mammograms. MAMMOGRAM ASSESSMENT: ??ACR 1 Negative PATIENTS: You will also receive a letter with your examination results in an easy to read format. ??If you have questions about your results, please contact your referring provider. Narrative 06/24/2022 4:09 PM CDT For Patients: As a result of the Century Cures Act, medical imaging exams and procedure reports are released immediately into your electronic medical record. You may view this report before your referring provider. If you have questions, please contact your health care provider. XR MAMMO FUNMILAYO BILAT SCREEN [[id number]] CLINICAL HISTORY: ??This is an asymptomatic 46 y.o. patient. INDICATION FOR EXAM: Mammogram Screening. TECHNIQUE: CC & MLO views were obtained. ??This study was evaluated with the assistance of Computer-Aided Detection. Breast Tomosynthesis was used in interpretation. COMPARISON FILM: Yes 04/07/21 [facility] 01/29/20 [facility] FINDINGS: ??The breasts have scattered areas of fibroglandular density. There are no dominant masses, suspicious micro calcifications or areas of architectural distortion. Ruth Estrella MD MAMMO * (ABNORMAL) LIPID PANEL W REFLEX MEASURED LDL (01/03/2020 9:55 AM CDT) CHOLESTEROL,TOTAL 209(H) 100 - 199 mg/dL 01/03/2020 3:29 PM CDT [facility] TRIGLYCERIDES 123 <150 mg/dL 01/03/2020 3:29 PM CDT [facility] HDL CHOLESTEROL 44 >40 mg/dL 0 3:29 PM CDT [facility] NON-HDL CHOLESTEROL 165(H) <145 mg/dl 01/03/2020 3:29 PM CDT [facility] CHOL/HDL RATIO 4.75(H) <4.50 01/03/2020 3:29 PM CDT [facility] LDL CHOLESTEROL 140(H) <=130 mg/dL 01/03/2020 3:29 PM CDT [facility] PROVIDER ORDERED STATUS RANDOM 01/03/2020 3:29 PM CDT [facility] Blood BLOOD SPECIMEN / Unknown Venipuncture / Unknown 01/03/2020 9:55 AM CDT 01/03/2020 9:58 AM CDT Ruth Estrella MD CHEMISTRY [facility] [address] [place] [address], * APARTMENT MAINTENANCE SUPERVISOR THIN PREP PAP SCREEN IMAGED (01/03/2020 9:45 AM CDT) Case Report Gynecologic Cytology Report ? Case: [id number] ? Authorizing Provider: ??Ruth Estrella MD ??Collected: ? 01/03/2020 0945 ? [facility] ?Received: ?01/03/2020 1310 ? Clinic ? First Screen: ?Jeanette Valle ? Specimen: ?APARTMENT MAINTENANCE SUPERVISOR ThinPrep Vial Screening, Cervical ? 01/11/2020 2:02 PM CDT [facility] INTERPRETATION/ RESULT NEGATIVE FOR INTRAEPITHELIAL LESION OR MALIGNANCY (NIL) (none) 01/11/2020 2:02 PM CDT [facility] IMEN ADEQUACY Satisfactory for evaluation No endocervical component seen 01/11/2020 2:02 PM CDT [facility] [employer] ENTRAL LABORATORY HPV REQUEST HPV if ASCUS 01/11/2020 2:02 PM CDT [facility] [employer]-[facility] ENTRAL LABORATORY Date of LMP Hysterectomy 01/11/2020 2:02 PM CDT [facility] [employer] [facility] ENTRAL [facility] Last Pap Date 05/01/14 01/11/2020 2:02 PM CDT [facility] ENTRAL LABORATORY Last Pap Result NIL 0 2:02 PM CDT [facility] EN[facility] Abnormal Pap or [place] Bx in last 5 years No 01/11/2020 2:02 PM CDT [facility] EN[facility]MD [facility] Menstrual Status Hysterectomy-cerv ix present 01/11/2020 2:02 PM CDT [facility] [place] Bx Done Today No 01/11/2020 2:02 PM CDT [facility] Additional Information None given 01/11/2020 2:02 PM CDT [facility] EN[facility] Comment: Cytology is screened at [facility] - [address], [place] [address] and [facility] - [address], [place] [address] and [facility] - [address] [place] [address] [facility] - [address], [place] [address] Automated Review Successful 01/11/2020 2:02 PM CDT [facility] Comment:Specimen processed s uccessfully by automated rail bonder device, ThinPrep Imaging System, [employer] Note The pap test is a screening technique, not a diagnostic procedure. It is used primarily to screen for squamous cancers and precursor lesions. Published studies have shown that it is subject to both false negative and false positive results. The pap test should not be used as the sole means to diagnose or exclude pre-malignant and malignant lesions. 01/11/2020 2:02 PM CDT [facility] Other (Cervical) Non-Blood / Unknown 01/03/2020 9:45 AM CDT 01/03/2020 1:10 PM CDT Ruth Estrella MD PATHOLOGY/CYTOLO GY [facility] [address] [place] [address], [place] * ANTI HCV (08/30/2012 10:35 AM CDT) ANTI HCV Non-reacti ve [facility] 08/30/2012 10:3 5 AM CDT 08/30/2012 5:02 PM CDT Dinorah Jaime CNM SEND OUTS [facility] [place]NAL ZIP [address] [place] [address] from Last 3 Months or Most Recently Relevant to Health Maintenance Advance Directives * Full Code (Latest Code Status on File) Date Activated Date Inactivated Comments 03/30/2016 4:07 PM 03/31/2016 8:31 PM * Full Code Date Activated Date Inactivated Comments 03/30/2016 8:35 AM 03/30/2016 4:06 PM * Full Code Date Activated Date Inactivated Comments 02/21/2016 10:59 AM 02/21/2016 1:52 PM * Full Code Date Activated Date Inactivated Comments 05/02/2015 9:56 AM 05/02/2015 5:11 PM Care Teams Management Psychologist Relationship Specialty [place] [address] [place] [address] PCP - General Nurse Practitioner 06/24/22 Mica Pandey NP Endocrinology 03/30/16 Consultants, [facility] . Charter Pilot Obstetrics and Gynecology 03/30/16
--- OUTSIDE RECORDS SUMMARY | 2023-07-19 08:13 | XMS_ITS | Referral Summary ---
Author Name Unknown Organization [place] Address [address] [place] [address] Care Team Providers Care Supervisor Insulation Name Role Phone No Ref-Primary, Physician Primary [...] Comments Blood Pressure 115/55 05/31/2016 12:37 PM MOUNTER BRASS WIND INSTRUMENTS Pulse 75 05/31/2016 11:01 AM M[employer]TER [employer] Temperature 36.6 ??C (97.8 ??F) 05/31/2016 11:[address] Respiratory Rate 18 05/31/2016 11:01 AM [employer] Oxygen Saturation 97% 05/31/2016 12:39 PM MOUNTER [employer]STRUM[employer] Inhaled Oxygen Concentration - - Weight 81.9 kg (180 lb 8 oz) 05/28/2016 9:03 AM M[employer]TER [employer] INSTRUM[employer] Height 170.2 cm (5' 7) 05/28/2016 9:03 AM MOUNTER [employer]ASS [employer] INSTRUMENTS Body Mass Index 28.27 05/28/2016 9:03 AM MOUNTER [employer] INSTRUMENTS Plan of Treatment Not on file Care Teams Supervisor Insulation Relationship Specialty Start Date End Date No Ref-Primary, Physician PCP - General 05/31/16
== END 2023-07-19 08:10 | disposition home or self-care (01) ==
LOC: NFLDREF 08:10
PROVIDERS: PCP Internal Medicine; Visit Provider Internal Medicine
DX: E11.9 Type 2 diabetes mellitus without complications (principal); Z79.84 Long term (current) use of oral hypoglycemic drugs
CPT/HCPCS: 80053

== ENCOUNTER 2023-08-29 01:39 | Emergency (ER) | payer BC, SELFPAY ==
[2023-08-29 01:43] VITALS: BP 154/78; PULSE 89; RESP 18; TEMP 36.7; O2SAT 99; BMI 27.4
--- OUTSIDE RECORDS SUMMARY | 2023-08-29 01:43 | XMS_ITS | Encounter Summary ---
Author Name Unknown Organization [facility] Address [address] [place] [address] Care Team Providers Care Occupational Health Nurse Manager Name Role Phone Elsewhere, Pcp Primary Care Provider Unavailabl e Encounter Details Date Type Department Care Team (Late st Contact Info) Description 06/17/2009 Historical Ophthalmology RST OPH [place] [address] Social History Tobacco Use Types Packs/Day Years Used Date Smoking Tobacco: Never Assessed Sex and Gender Information Value Date Recorded Sex Assigned at Female 04/29/2018 7:45 PM IGNITION SPECIALIST Gender Identity Female 04/29/2018 7:45 PM IGNITION SPECIALIST Sexual Orientation Straight 04/29/2018 7: 45 PM IGNITION SPECIALIST documented as of this encounter Progress [...] #2 chronic blepharitis #3 giant papillary conjunctivitis [facility] Reports - EYEGEN Id: [id number] Status: Fnl documented in this encounter Plan of Treatment Not on file documented as of this encounter Visit Diagnoses Not on filedocumented in this encounter Care Teams Occupational Health Nurse Manager Relationship Specialty Start Date End Date Elsewhere, Pcp PCP - General Internal Medicine 10/28/18 documented as of this encounter
--- OUTSIDE RECORDS SUMMARY | 2023-08-29 01:43 | XMS_ITS | Encounter Summary ---
Author Name Unknown Organization [facility] Address [address] [place] [address] Care Team Providers Care Senior Underwriter Name Role Phone Elsewhere, Pcp Primary Care Provider Unavailabl e Encounter Details Date Type Department Care Team (Late st Contact Info) Description 06/21/2009 Historical Ophthalmology RST OPH Aziza Ng O.D. [address] [place] [phone] Social History Tobacco Use Types Packs/Day Years Used Date Smoking Tobacco: Never Assessed Sex and Gender Information Value Date Recorded Sex Assigned at Female 04/29/2018 7:45 PM PAPER TUBE CUTTER Gender Identity Female 04/29/2018 7:45 PM PAPER TUBE CUTTER Sexual Orientation Straight 04/29/2018 7: 45 PM PAPER TUBE CUTTER documented as of this encounter Progress Notes * Aziza Ng O.D. - 06/21/2009 4:15 PM CST Contact Lens Exam MULTI-VISIT DOCUMENT This document contains multiple patient visits and is available for review in Document Viewer. CDM Reports - EYECL Id: [id number] Status: Fnl documented in this encounter Plan of Treatment Not on file documented as of this encounter Visit Diagnoses Not on filedocumented in this encounter Care Teams Senior Underwriter Relationship Specialty Start Date End Date Elsewhere, Pcp PCP - General Internal Medicine 10/28/18 documented as of this encounter
--- OUTSIDE RECORDS SUMMARY | 2023-08-29 01:43 | XMS_ITS | Encounter Summary ---
Author Name Unknown Organization [facility] Address [address] [place] [address] Care Team Providers Care Proposal Specialist Name Role Phone Elsewhere, Pcp Primary Care Provider Unavailabl e Encounter Details Date Type Department Care Team (Late st Contact Info) Description 10/21/2006 Historical Ophthalmology RST OPH Rambo Medeiros M.D., Ph.D. [address] [place] [phone] (Work) Social History Tobacco Use Types Packs/Day Years Used Date Smoking Tobacco: Never Assessed Sex and Gender Information Value Date Recorded Sex Assigned at Female 04/29/2018 7:45 PM BRINE SUPERVISOR Gender Identity Female 04/29/2018 7:45 PM BRINE SUPERVISOR Sexual Orientation Straight 04/29/2018 7: 45 PM BRINE SUPERVISOR documented as of this encounter Progress Notes [...] Dry eye [facility] Reports - EYEGEN Id: [id number] Status: Fnl documented in this encounter Plan of Treatment Not on file documented as of this encounter Visit Diagnoses Not on filedocumented in this encounter Care Teams Proposal Specialist Relationship Specialty Start Date End Date Elsewhere, Pcp PCP - General Internal Medicine 10/28/18 documented as of this encounter
--- OUTSIDE RECORDS SUMMARY | 2023-08-29 01:43 | XMS_ITS | Clinical Summary ---
Author Name Unknown Organization [facility] Address [place], [place] [address] Care Team Providers Care Signal Apprentice Name Role Phone Mica Pandey LEAD JAVASCRIPT ENGINEER Unavailable [phone] Consultants, [facility] Unavailable Vaneva Doug Campbell NP Primary Care Provider [phone] Allergies Active Allergy Reactions Criticality Noted Date Comments Venom-Honey Bee Hives High 09/26/2018 Medications Medication Sig Dispensed Refills Start Date End Date Status Pvxsi-0-DVJ-EPA-Fish Oil (FISH OIL) 1,000 mg (120 mg-180 [...] 7:30 03/30 at 39+0) Problems: --(TATY from [place] center at 30+5) --GDMA2: humulin 18 U [...] 3 oz) M Vag-Spont Maribell ng Delivery Location:[facility] 11/23 Term 40w 0d 3.97 kg (8 lb 12 oz) M Vag Maribell ng 05/02 SAB 03/30 Term 39w 1d 3.32 kg (7 lb 5 oz) F Vag Epidu ral Maribell ng 9 9 ESTRADA -[facility] EY,BG SHAHID SIDNEY Dr. Jess Scott Delivery Location:[facility] Last Filed Vital Signs Vital Sign Reading Time Taken Comments Blood Pressure 112/74 04/24/2021 12:27 PM WINDMILL TECHNICIAN Pulse 80 04/24/2021 12:27 PM WINDMILL TECHNICIAN Temperature 36.8 ??C (98.3 ??F) 04/24/2021 1 2:27 PM WINDMILL TECHNICIAN Respiratory Rate 18 04/01/2016 9:55 AM WINDMILL TECHNICIAN Oxygen Saturation 98% 03/31/2016 8:3 1 AM WINDMILL TECHNICIAN Inhaled Oxygen Concentration - - Weight 83.7 kg (184 lb 9.6 oz) 05/21/19 11:57 AM WINDMILL TECHNICIAN with shoes Height 168.9 cm (5' 6.5) [...] age 9-49 12/12/2023 3 ([facility]), 02/14/2013, 05/04/2012 Lipids for age 45-75 01/02/2025 [...] medical examination at a health care facility SOLE STAPLER WELT THIN PREP PAP SCREEN IMAGED Routine 01/03/2020 [...] care provider. XR MAMMO FUNMILAYO BILAT SCREEN [[id number]] CLINICAL HISTORY: ??This is an asymptomatic 46 [...] - 199 mg/dL 01/03/2020 3:29 PM CDT [facility] TRAL LABORATORY TRIGLYCERIDES 123 <150 mg/dL 01/03/2020 3:29 PM CDT [facility] TRAL LABORATORY HDL CHOLESTEROL 44 >40 mg/dL 0 3:29 PM CDT [facility] TRAL LAB[facility] NON-HDL CHOLESTEROL 165(H) <145 mg/dl 01/03/2020 3:29 PM CDT [facility] TRAL LABORATORY CHOL/HDL RATIO 4.75(H) <4.50 01/03/2020 3:29 PM CDT [facility] TRAL LABORATORY LDL CHOLESTEROL 140(H) <=130 mg/dL 01/03/2020 3:29 PM CDT [facility] TRAL LABORATORY PROVIDER ORDERED STATUS RANDOM 01/03/2020 3:29 PM CDT [facility] TRAL LABORATORY Blood BLOOD SPECIMEN / Unknown Venipuncture / Unknown 01/03/2020 9:55 AM CDT 01/03/2020 9:58 AM CDT Ruth Estrella MD CHEMISTRY [facility] [address] [place] [address], * SOLE STAPLER WELT THIN PREP PAP SCREEN IMAGED (01/03/2020 9:45 AM CDT) Case Report Gynecologic Cytology Report ? Case: [id number] ? Authorizing Provider: ??Ruth Estrella MD ??Collected: ? 01/03/2020 0945 ? [facility] ?Received: ?01/03/2020 1310 ? Clinic ? First Screen: ?Jeanette Valle ? Specimen: ?SOLE STAPLER WELT ThinPrep Vial Screening, Cervical ? 01/11/2020 2:02 PM CDT [facility] INTERPRETATION/ RESULT NEGATIVE FOR INTRAEPITHELIAL LESION OR MALIGNANCY (NIL) (none) 01/11/2020 2:02 PM CDT [facility] ENTRAL LABORATORY IMEN ADEQUACY Satisfactory for evaluation No endocervical component seen 01/11/2020 2:02 PM CDT [facility] [employer] ENTRAL LABORATORY HPV REQUEST HPV if ASCUS 01/11/2020 2:02 PM CDT [facility] [employer] ENTRAL LABORATORY Date of LMP Hysterectomy 01/11/2020 2:02 PM CDT [facility] [email or web address] [facility] ENTRAL LABORAT[facility] Last Pap Date 05/01/14 01/11/2020 2:02 PM CDT [facility]-C ENTRAL LABORATORY Last Pap Result NIL 0 2:02 PM CDT [facility] ENTRAL LABORATORY Abnormal Pap or [place] Bx in last 5 years No 01/11/2020 2:02 PM CDT [facility] ENTRME LABORATORY Menstrual Status Hysterectomy-cerv ix present 01/11/2020 2:02 PM CDT [facility] [place] Bx Done Today No 01/11/2020 2:02 PM CDT [facility] Additional Information None given 01/11/2020 2:02 PM CDT [facility] ENTRME LABORATORY Comment: Cytology is screened at [facility] - [address], [place] [address] and [facility] - [address], [place] [address] [address] [facility] - [address] [place] [address] Interpreted at [facility] - [address], [place] [address] Automated Review Successful 01/11/2020 2:02 PM CDT [facility] Comment:Specimen processed s uccessfully by automated tax services professional device, ThinPrep Imaging System, [employer] Note The pap test is a [...] and malignant lesions. 01/11/2020 2:02 PM CDT [facility] Other (Cervical) Non-Blood / Unknown 01/03/2020 9:45 AM CDT 01/03/2020 1:10 PM CDT Ruth Estrella MD PATHOLOGY/CYTOLO GY [facility] [address] [place] [address], [place] * ANTI HCV (08/30/2012 10:35 AM CDT) ANTI HCV Non-reacti ve [facility] 08/30/2012 10:3 5 AM CDT 08/30/2012 5:02 PM CDT Dinorah Jaime CNM SEND OUTS [facility] [place]NAL ZIP [address] [place] [address] from Last 3 Months or Most Recently [...] 9:56 AM 05/02/2015 5:11 PM Care Teams Signal Apprentice Relationship Specialty [place] [address] [place] [address] PCP - General Nurse Practitioner 06/24/22 Mica Pandey NP Endocrinology 03/30/16 Consultants, [facility] . Can Filling And Closing Machine Tender Obstetrics and Gynecology 03/30/16
--- OUTSIDE RECORDS SUMMARY | 2023-08-29 01:43 | XMS_ITS | Clinical Summary ---
Author Name Unknown Organization [facility] Address [address] [place] [address] Care Team Providers Care Wrapper Off Name Role Phone Elsewhere, Pcp Primary Care Provider Unavailabl e Source Comments Patient records contain information from all sites at [facility]. For routine questions regarding patient records, call [phone] during business hours, M-F 8:00 AM - 5:00 PM Central Time. Record requests for emergency care only can be directed to [phone] at any time.[facility] Allergies Active Allergy Reactions Criticality Noted Date Comments Bee Venom Protein (Honey Bee) Hives (Reselect Reaction) High 09/26/2018 Medications Medication Sig Dispensed Refills Start Date End Date Status EPINEPHrine (EPIPEN) 0.3 mg/0.3 mL injection syringe Inject 0.3 mg intramuscularly as needed for anaphylaxis. Inject into the thigh. Active linaCLOtide (Linzess) 72 mcg capsule Take 1 capsule (72 mcg total) by mouth every morning before breakfast. May escalate to 2/day if no effect 45 capsule 11 11/19/2021 Active citalopram (CeleXA) 20 mg tablet Take 20 mg by mouth daily. 30 mg // tabs daily 10/30/2022 Active testosterone (testoserone in Vanicream) Apply 10 mg of testosterone topically daily. 07/14/2022 Active Active Problems Problem Noted Date [...] than three times a week 11/19/2021 Attends Sikhism Services Not on file 11/19 Do you belong to any clubs o r organizations such as episcopalian groups, unions, fraternal or athletic groups, or [...] and heating? Not hard at all 11/19/2021 [facility] Occup[facility] ional [facility] - Occupational Stress [...] place to sleep or slept in a senior living (including now)? No 11/19/2021 Nutrition Answer Date [...] Sex Assigned at Female 04/29/2018 7:45 PM FORM DESIGNER Gender Identity Female 04/29/2018 7:45 PM FORM DESIGNER Sexual Orientation Straight 04/29/2018 7: 45 PM FORM DESIGNER Last Filed Vital Signs Vital Sign Reading [...] 1975 Hepatitis C Screening 1975 COVID-19 Vaccine ( season) 2022 02/25/2021, 06/24/2020 Fasting Glucose for Diabetes Screening 01/02/2023 01/03/2020, 05/02/2018, 12/29/2011 Influenza Vaccine (#1) 2023 3, 02/14/2013, 05/04/2012, Additional history exists Depression Screening (Annual PHQ-2) 04/12/2023 Mammogram 06/25/2023 06/24/2022, 12/10/2020, 01/29/2020, Additional history exists Lipid (Cholesterol) Screening 01/02/2025 01/03/2020, 05/02/2018, 12/29/2011 DTaP,Tdap,and Td Vaccines (3 - Td or Tdap) 01/30/2026 01/31/2016, 10/21/2012, 05/21/2006, Additional history exists Colonoscopy 05/13/2028 05/13/2018, 04/2018, 06/27/2007, Additional history exists Colorectal Cancer Screening 05/13/2028 Hepatitis A Vaccines Completed 02/18/1996, 02/18/1996, 12/16/1993 Hepatitis B Vaccines Completed 02/18/1996, 02/18/1996, 05/13/1994, Additional history exists HIV Screening Completed 07/16/2008 Pneumococcal vaccine (0-64 years) Aged Out No longer eligible based on patient's age to complete this topic Medical Devices Implanted Type Area Incinerator Plant General Supervisor Device Identifier Shelf Expiration Date Model / Serial / Lot [facility] Vanessa Alvarado Polyprp [facility] 6x6 - [id number] Implanted:Qty: 1 on 12/26/2018 by Nicholas Parsons M.D. at [facility] Mesh or Patch [employer] 11/10/2023 M3 / / [id number] Sling Transvag Mid-Ureth Quang - [id number] Implanted:Qty: 1 on 12/26/2018 by Nicholas Parsons M.D. at [facility] Mesh or Patch [employer] 09/29/2021 [id number] / / [id number] Procedures Procedure Name Priority Date/Time Associated Diagnosis Comments BI BREAST SCREENING BILATERAL WITH TOMOSYNTHESIS Routine 06/24/2022 10:22 AM CDT EXTI GLUCOSE, RANDOM, S/P Routine 01/03/2020 9:55 AM CDT EXTI LIPID PANEL W REFLEX MEASURED LDL Routine 01/03/2020 9:55 AM CDT COLONOSCOPY Routine 05/13/2018 1:24 PM FORM DESIGNER Sprue Celiac (HCC) from Last 3 Months or Most Recently Relevant to Health Maintenance Advance Directives For more information, please contact: [phone] Documents on File Type Date Recorded Patient Fisher Lobster Expl anation Advance Directives 10/11/2009 12:00 AM Lega cy document. See document viewer. * Full Code (Latest Code Status on File) Date Activated Date Inactivated Comments 12/26/2018 4:30 PM 12/27/2018 7:44 PM Question Answer Comments Full Code: Discussed Care Teams Wrapper Off Relationship Specialty Start Date End Date Elsewhere, Pcp PCP - General Internal Medicine 10/28/18
--- OUTSIDE RECORDS SUMMARY | 2023-08-29 01:43 | XMS_ITS | Continuity of Care Document ---
Author Name Unknown Organization [facility] Address [address] [place] [address] Phone Care Team Providers Care Zinc Furnace Charger Name Role Phone Dc Laguna MD Unavailable Unavailable Procedures Procedure Date Office/Outpatient Visit,[facility] 2022 Advance Directives Directive Yes / No Effective Date File Name No Information Encounters Encounter Description Practice Location Reason(s) For Visit Diagnoses Date Provider Providers Copied on Encounter Office/Outpat ient Visit,[facility], [address], [place], [place], [id number], [place] tel:[phone] [facility] Other cervical disc displacement, cervicothoracic region 3 Jase Irwin. [facility] [place], [address] [place] [address], [address], [id number] , [place]. tel:[phone] Referring Provider: [facility] [address] [place] [address], [address]. tel:[phone] Family History Family Member Type Diagnosis Age At Onset No Information Payers Payer name Insurance type Covered alliance party ID Authoriza tion(s) [employer] [id number] Social History Type Description Quantity Date Captured [...]
--- OUTSIDE RECORDS SUMMARY | 2023-08-29 01:43 | XMS_ITS | Encounter Summary ---
Author Name Unknown Organization [facility] Address [address] [place] [address] Care Team Providers Care Russet Repairer Name Role Phone Elsewhere, Pcp Primary Care Provider Unavailabl e Encounter Details Date Type Department Care Team (Late st Contact Info) Description 12/03/2003 Historical Ophthalmology RST OPH [place] [address] Social History Tobacco Use Types Packs/Day Years Used Date Smoking Tobacco: Never Assessed Sex and Gender Information Value Date Recorded Sex Assigned at Female 04/29/2018 7:45 PM ENROLLMENT COORDINATOR Gender Identity Female 04/29/2018 7:45 PM ENROLLMENT COORDINATOR Sexual Orientation Straight 04/29/2018 7: 45 PM ENROLLMENT COORDINATOR documented as of this encounter Progress Notes [...] papillary conjunctivitis CD Reports - EYEGEN Id: [id number] Status: Fnl documented in this encounter Plan of Treatment Not on file documented as of this encounter Visit Diagnoses Not on filedocumented in this encounter Care Teams Russet Repairer Relationship Specialty Start Date End Date Elsewhere, Pcp PCP - General Internal Medicine 10/28/18 documented as of this encounter
--- OUTSIDE RECORDS SUMMARY | 2023-08-29 01:43 | XMS_ITS | Encounter Summary ---
Author Name Unknown Organization [facility] [place] Address [address] [place] [address] Care Team Providers Care Testing Analyst Name Role Phone Elsewhere, Pcp Primary Care Provider Unavailabl e Encounter Details Date Type Department Care Team (Late st Contact Info) Description 05/14/2008 Historical Ophthalmology RST OPH Darlene Wei O.D. [address] [place] [address] Social History Tobacco Use Types Packs/Day Years Used Date Smoking Tobacco: Never Assessed Sex and Gender Information Value Date Recorded Sex Assigned at Female 04/29/2018 7:[address] CLERK Gender Identity Female 04/29/2018 7:[address] CLERK Sexual Orientation Straight 04/29/2018 7: [address] CLERK documented as of this encounter Progress Notes * Darlene Wei O.D. - 05/14/2008 1:43 PM CST Contact Lens Exam MULTI-VISIT DOCUMENT This document contains multiple patient visits and is available for review in Document Viewer. CDM Reports - EYECL Id: [id number] Status: Fnl documented in this encounter Plan of Treatment Not on file documented as of this encounter Visit Diagnoses Not on filedocumented in this encounter Care Teams Testing Analyst Relationship Specialty Start Date End Date Elsewhere, Pcp PCP - General Internal Medicine 10/28/18 documented as of this encounter
--- OUTSIDE RECORDS SUMMARY | 2023-08-29 01:43 | XMS_ITS | Encounter Summary ---
Author Name Unknown Organization [facility] Address [address] [place] [address] Care Team Providers Care Hematology Oncology Consultant Name Role Phone Elsewhere, Pcp Primary Care Provider Unavailabl e Encounter Details Date Type Department Care Team (Late st Contact Info) Description 05/14/2008 Historical Ophthalmology RST OPH Darlene Wei O.D. [address] [place] [address] Social History Tobacco Use Types Packs/Day Years Used Date Smoking Tobacco: Never Assessed Sex and Gender Information Value Date Recorded Sex Assigned at Female 04/29/2018 7:45 PM HEALTH SERVICES MANAGER Gender Identity Female 04/29/2018 7:45 PM HEALTH SERVICES MANAGER Sexual Orientation Straight 04/29/2018 7: 45 PM HEALTH SERVICES MANAGER documented as of this encounter Progress Notes [...] problem. #2 Refractive error (myopic astigmatism, myopia). [facility] Reports - EYEGEN Id: [id number] Status: Fnl documented in this encounter Plan of Treatment Not on file documented as of this encounter Visit Diagnoses Not on filedocumented in this encounter Care Teams Hematology Oncology Consultant Relationship Specialty Start Date End Date Elsewhere, Pcp PCP - General Internal Medicine 10/28/18 documented as of this encounter
--- OUTSIDE RECORDS SUMMARY | 2023-08-29 01:43 | XMS_ITS ---
Author Name Unknown Organization [facility] Address [address] [place] [address] Care Team Providers Care Brand Recorder Name Role Phone Unavailable Unavailable Unavailable Surgery Details Not on file Complications Check Surgery Details section. Procedure Estimated Blood Loss Check Surgery Details section. Procedure Findings Check Surgery Details section. Procedure Specimens Taken Check Surgery Details section.
--- OUTSIDE RECORDS SUMMARY | 2023-08-29 01:43 | XMS_ITS | Encounter Summary ---
Author Name Unknown Organization [facility] Address [address] [place] [address] Care Team Providers Care Coal Cager Name Role Phone Elsewhere, Pcp Primary Care Provider Unavailabl e Encounter Details Date Type Department Care Team (Late st Contact Info) Description 03/09/2003 Historical Ophthalmology RST OPH Aziza Ng O.D. [address] [place] [phone] Social History Tobacco Use Types Packs/Day Years Used Date Smoking Tobacco: Never Assessed Sex and Gender Information Value Date Recorded Sex Assigned at Female 04/29/2018 7:45 PM MAIL PROCESSING MACHINE OPERATOR Gender Identity Female 04/29/2018 7:45 PM MAIL PROCESSING MACHINE OPERATOR Sexual Orientation Straight 04/29/2018 7: 45 PM MAIL PROCESSING MACHINE OPERATOR documented as of this encounter Progress Notes * Aziza Ng O.D. - 03/09/2003 12:00 AM CST Contact Lens Exam MULTI-VISIT DOCUMENT This document contains multiple patient visits and is available for review in Document Viewer. CDM Reports - EYECL Id: [id number] Status: Fnl documented in this encounter Plan of Treatment Not on file documented as of this encounter Visit Diagnoses Not on filedocumented in this encounter Care Teams Coal Cager Relationship Specialty Start Date End Date Elsewhere, Pcp PCP - General Internal Medicine 10/28/18 documented as of this encounter
--- OUTSIDE RECORDS SUMMARY | 2023-08-29 01:43 | XMS_ITS | Encounter Summary ---
Author Name Unknown Organization [facility] Address [address] [place] [address] Care Team Providers Care Mechanical Design Engineer Facilities Name Role Phone Elsewhere, Pcp Primary Care Provider Unavailabl e Encounter Details Date Type Department Care Team (Late st Contact Info) Description 05/17/2007 Historical Ophthalmology RST OPH Aziza Ng O.D. [address] [place] [phone] Social History Tobacco Use Types Packs/Day Years Used Date Smoking Tobacco: Never Assessed Sex and Gender Information Value Date Recorded Sex Assigned at Female 04/29/2018 7:45 PM RUNNER MAN Gender Identity Female 04/29/2018 7:45 PM RUNNER MAN Sexual Orientation Straight 04/29/2018 7: 45 PM RUNNER MAN documented as of this encounter Progress Notes * Aziza Ng O.D. - 05/17/2007 2:45 PM CST Contact Lens Exam MULTI-VISIT DOCUMENT This document contains multiple patient visits and is available for review in Document Viewer. CDM Reports - EYECL Id: [id number] Status: Fnl documented in this encounter Plan of Treatment Not on file documented as of this encounter Visit Diagnoses Not on filedocumented in this encounter Care Teams Mechanical Design Engineer Facilities Relationship Specialty Start Date End Date Elsewhere, Pcp PCP - General Internal Medicine 10/28/18 documented as of this encounter
--- OUTSIDE RECORDS SUMMARY | 2023-08-29 01:43 | XMS_ITS | Encounter Summary ---
Author Name Unknown Organization [facility] Address [address] [place] [address] Care Team Providers Care Valet Attendant Name Role Phone Elsewhere, Pcp Primary Care Provider Unavailabl e Encounter Details Date Type Department Care Team (Late st Contact Info) Description 06/05/2009 Historical Ophthalmology RST OPH Aziza Ng O.D. [address] [place] [address] Social History Tobacco Use Types Packs/Day Years Used Date Smoking Tobacco: Never Assessed Sex and Gender Information Value Date Recorded Sex Assigned at Female 04/29/2018 7:45 PM AGRICULTURAL ADVISER Gender Identity Female 04/29/2018 7:45 PM AGRICULTURAL ADVISER Sexual Orientation Straight 04/29/2018 7: 45 PM AGRICULTURAL ADVISER documented as of this encounter Progress Notes * Aziza Ng O.D. - 06/05/2009 12:52 PM CST Eye General CHIEF COMPLAINT Dry eyes HISTORY OF PRESENT ILLNESS Primarily a spectacles lens wearer; from 2009 or 2008; distance blur during ; feels like vision has returned to normal. Wears soft contacts forming department end finder; not by choice; lenses are uncomfortable; dry [...] chronic problem. CDM Reports - EYEGEN Id: [id number] Status: Fnl documented in this encounter Plan of Treatment Not on file documented as of this encounter Visit Diagnoses Not on filedocumented in this encounter Care Teams Valet Attendant Relationship Specialty Start Date End Date Elsewhere, Pcp PCP - General Internal Medicine 10/28/18 documented as of this encounter
--- OUTSIDE RECORDS SUMMARY | 2023-08-29 01:43 | XMS_ITS | Encounter Summary ---
Author Name Unknown Organization [facility] Address [address] [place] [address] Care Team Providers Care Help Desk Intern Name Role Phone Elsewhere, Pcp Primary Care Provider Unavailabl e Encounter Details Date Type Department Care Team (Late st Contact Info) Description 04/20/2007 Historical Ophthalmology RST OPH Aziza Ng O.D. [address] [place] [address] Social History Tobacco Use Types Packs/Day Years Used Date Smoking Tobacco: Never Assessed Sex and Gender Information Value Date Recorded Sex Assigned at Female 04/29/2018 7:45 PM ELECTROENCEPHALOGRAPHIC TECHNICIAN Gender Identity Female 04/29/2018 7:45 PM ELECTROENCEPHALOGRAPHIC TECHNICIAN Sexual Orientation Straight 04/29/2018 7: 45 PM ELECTROENCEPHALOGRAPHIC TECHNICIAN documented as of this encounter Progress [...] (myopia, stable). CDM Reports - EYEGEN Id: [id number] Status: Fnl documented in this encounter Plan of Treatment Not on file documented as of this encounter Visit Diagnoses Not on filedocumented in this encounter Care Teams Help Desk Intern Relationship Specialty Start Date End Date Elsewhere, Pcp PCP - General Internal Medicine 10/28/18 documented as of this encounter
--- OUTSIDE RECORDS SUMMARY | 2023-08-29 01:43 | XMS_ITS | Encounter Summary ---
Author Name Unknown Organization [facility] Address [address] [place] [address] Care Team Providers Care Thread Trimmer Name Role Phone Elsewhere, Pcp Primary Care Provider Unavailabl e Encounter Details Date Type Department Care Team (Late st Contact Info) Description 10/18/2002 Historical Ophthalmology RST OPH [place]ev[place] [address] Social History Tobacco Use Types Packs/Day Years Used Date Smoking Tobacco: Never Assessed Sex and Gender Information Value Date Recorded Sex Assigned at Female 04/29/2018 7:45 PM QUICK TECHNICIAN Gender Identity Female 04/29/2018 7:45 PM QUICK TECHNICIAN Sexual Orientation Straight 04/29/2018 7: 45 PM QUICK TECHNICIAN documented as of this encounter Progress [...] papillary conjunctivitis CDM Reports - EYEGEN Id: [id number] Status: Fnl documented in this encounter Plan of Treatment Not on file documented as of this encounter Visit Diagnoses Not on filedocumented in this encounter Care Teams Thread Trimmer Relationship Specialty Start Date End Date Elsewhere, Pcp PCP - General Internal Medicine 10/28/18 documented as of this encounter
--- OUTSIDE RECORDS SUMMARY | 2023-08-29 01:43 | XMS_ITS | Referral Summary ---
Author Name Unknown Organization [facility] Address [address] [place] [address] Care Team Providers Care Supervisor Cutting And Sewing Room Name Role Phone Elsewhere, Pcp Primary Care Provider Unavailabl e Source Comments Patient records contain information from all sites at [facility]. For routine questions regarding patient records, call [phone] during business hours, M-F 8:00 AM - 5:00 PM Central Time. Record requests for emergency care only can be directed to [phone] at any time.[facility] Allergies Active Allergy Reactions Criticality Noted [...] than three times a week 11/19/2021 Attends Hinduism Services Not on file 11/19 Do you belong to any clubs o r organizations such as quaker groups, unions, fraternal or athletic groups, or [...] and heating? Not hard at all 11/19/2021 [facility] of Occupat ional Health - Occupational Stress [...] place to sleep or slept in a prison (including now)? No 11/19/2021 Nutrition Answer Date [...] Sex Assigned at Female 04/29/2018 7:45 PM SECONDARY SCHOOL TEACHER Gender Identity Female 04/29/2018 7:45 PM SECONDARY SCHOOL TEACHER Sexual Orientation Straight 04/29/2018 7: 45 PM SECONDARY SCHOOL TEACHER Last Filed Vital Signs Vital Sign Reading [...] on file Medical Devices Implanted Type Area Wet Washer Machine Device Identifier Shelf Expiration Date Model / Serial / Lot Geo Alvraado Polyprp Ptch 6x6 - [id number] Implanted:Qty: 1 on 12/26/2018 by Nicholas Parsons M.D. at [facility] Mesh or Patch Ethicon 11/10/2023 [facility] / / [id number] Sling Transvag Mid-Ureth Quang - [id number] Implanted:Qty: 1 on 12/26/2018 by Nicholas Parsons M.D. at [facility] Mesh or Patch [employer] 09/29/2021 [id number] / / [id number] Procedures Procedure Name Priority Date/Time Associated Diagnosis Comments BI BREAST SCREENING BILATERAL WITH TOMOSYNTHESIS Routine 06/24/2022 10:22 AM CDT EXTI GLUCOSE, RANDOM, S/P Routine 01/03/2020 9:55 AM CDT EXTI LIPID PANEL W REFLEX MEASURED LDL Routine 01/03/2020 9:55 AM CDT COLONOSCOPY Routine 05/13/2018 1:24 PM SECONDARY SCHOOL TEACHER Sprue Celiac (HCC) from Last 3 Months or Most Recently Relevant to Health Maintenance Advance Directives For more information, please contact: [phone] Documents on File Type Date Recorded Patient Hot Die Press Operator Expl anation Advance Directives 10/11/2009 12:00 AM Lega judy document. See document viewer. * Full Code (Latest Code Status on File) Date Activated Date Inactivated Comments 12/26/2018 4:30 PM 12/27/2018 7:44 PM Question Answer Comments Full Code: Discussed Care Teams Supervisor Cutting And Sewing Room Relationship Specialty Start Date End Date Elsewhere, Pcp PCP - General Internal Medicine 10/28/18
--- OUTSIDE RECORDS SUMMARY | 2023-08-29 01:43 | XMS_ITS | Encounter Summary ---
Author Name Unknown Organization [facility] Address [address] [place] [address] Care Team Providers Care Cafeteria Cashier Name Role Phone Elsewhere, Pcp Primary Care Provider Unavailabl e Encounter Details Date Type Department Care Team ([facility] st Contact Info) Description 05/27/2023 Orders Only Division of Gastroenterology in [place], [place] [address] [place] [address] Jayden Vieyra M.D. [address] [place] [address] Genetic Susceptibility To Disease Social History Tobacco [...] than three times a week 11/19/2021 Attends Mosque Services Not on file 11/19 Do you belong to any clubs o r organizations such as bahai groups, unions, fraternal or athletic groups, or [...] and heating? Not hard at all 11/19/2021 [facility] of Occupat ional Health - Occupational [...] place to sleep or slept in a assisted (including now)? No 11/19/2021 Nutrition Answer Date [...] Sex Assigned at Female 04/29/2018 7:45 PM NUMERICAL TOOL PROGRAMMER Gender Identity Female 04/29/2018 7:45 PM NUMERICAL TOOL PROGRAMMER Sexual Orientation Straight 04/29/2018 7: 45 PM NUMERICAL TOOL PROGRAMMER documented as of this encounter Plan of Treatment Not on file documented as of this encounter Procedures Procedure Name Priority Date/Time Associated Diagnosis Comments EXT TAPESTRY Routine 04/19/2021 12:00 AM NUMERICAL TOOL PROGRAMMER Genetic Susceptibility To Disease documented in this encounter Results * EXT Tapestry (04/19/2021 12:00 AM NUMERICAL TOOL PROGRAMMER) Gene Studied BRCA1,BRCA2,MLH1,MSH 2, MSH6,PMS2,EPCAM,APOB,L DLR,LDLRAP1,PCSK9 05/20/2021 12:00 AM NUMERICAL TOOL PROGRAMMER AJ Genetic Disease Assessed Evaluation of 11 genes associated with Hereditary Breast and Ovarian Cancer, Valdez Syndrome and Familial Hypercholesterolemia. 05/20/2021 12:00 AM [facility] Genetic Analysis Overall Interpretation Negative results through Tapestry do not replace diagnostic testing for patients with a personal or family history of cancer/hypercholestero lemia due to limitations with methodology. Consider a referral to a genetic counselor for diagnostic testing if warranted. 05/20/2021 12:00 AM [facility] Genetic Analysis Report See Tapestry PDF Report [...] enriched using a custom set of reagents (My Own Crown+ chemistry). Targeted regions were sequenced using an Illumina DNA sequencing system. Your sequence was matched to a modified version of the [place] standard reference genome (GRCh38). Variant calling was completed using a customized version of Pro[employer]'s Actus Interactive Softwareq software, requiring 20x coverage for validated variant calls. Copy Number Variants (CNVs) were called using a proprietary bioinformatics pipeline that compared the coverage profile of your sample with the coverage profiles of other reference set samples. [facility] GeneFits.me then analyzed the generated variant data for the exons and 10 bp of flanking intronic sequence (and select tagged intronic variants) of the 11 genes included in CaseMetrix from the Tink Database. Your sample was reviewed for single [...] assessments and medical management. 05/20/2021 12:00 AM NUMERICAL TOOL PROGRAMMER AJ Human Reference Sequence Assembly GRCh38 05/20/2021 12:00 AM NUMERICAL TOOL PROGRAMMER AJ Saliva (Mouth) 04/19/2021 Jayden Vieyra M.D. LAB GENETI C TESTING [place] [address] [address], [address] [place] [address], [facility] [place] [address] [address], [address]. [place] [address] documented in this encounter Visit Diagnoses Diagnosis Genetic Susceptibility To Disease documented in this encounter Care Teams Cafeteria Cashier Relationship Specialty Start Date End Date Elsewhere, Pcp PCP - General Internal Medicine 10/28/18 documented as of this encounter
--- OUTSIDE RECORDS SUMMARY | 2023-08-29 01:44 | XMS_ITS | Clinical Summary ---
Author Name Unknown Organization [facility] Address [address] [place] [address] Care Team Providers Care Preparation Supervisor Freezing Name Role Phone No Ref-Primary, Physician Primary Care Provider Allergies No known active allergies Medications Medication Sig Dispensed Refills Start Date End Date Status Vit-Fe Fumarate-FA ( MULTIVITAMIN PLUS IRON) 27-0.8 MG TABS per tablet Take 1 tablet by mouth daily Active DOMPERIDONE 10 MG TAB/CAP Active oxyCODONE-acetaminophe n (PERCOCET) 5-325 MG per tablet Take 1-2 tablets by mouth every 4 hours as needed for pain 15 tablet 05/31/2016 Active Resolved Problems Problem Noted Date [...] Comments Blood Pressure 115/55 05/31/2016 12:37 PM SHIPPING POINT INSPECTOR Pulse 75 05/31/2016 11:01 AM SHIPPING POINT INSPECTOR Temperature 36.6 ??C (97.8 ??F) 05/31/2016 11:[address] Respiratory Rate 18 05/31/2016 11:01 AM SHIPPING POINT INSPECTOR Oxygen Saturation 97% 05/31/2016 12:39 PM SHIPPING POINT INSPECTOR Inhaled Oxygen Concentration - - Weight 81.9 kg (180 lb 8 oz) 05/28/2016 9:03 AM SHIPPING POINT INSPECTOR Height 170.2 cm (5' 7) 05/28/2016 9:03 AM SHIPPING POINT INSPECTOR Body Mass Index 28.27 05/28/2016 9:03 AM SHIPPING POINT INSPECTOR Plan of Treatment Health Maintenance Due Date [...] 01/03/2020 COVID-19 Vaccine ( season) 2022 06/24/2020 PHQ-2 (once per calendar year) 2023 INFLUENZA VACCINE (Season Ended) 2023 02/14/2013, 02/14/2013, 05/04/2012, Additional history exists DTAP/TDAP/TD IMMUNIZATION (3 - Td or Tdap) [...] age to complete this topic Care Teams Preparation Supervisor Freezing Relationship Specialty Start Date End Date No Ref-Primary, Physician PCP - General 05/31/16
--- OUTSIDE RECORDS SUMMARY | 2023-08-29 01:44 | XMS_ITS | Referral Summary ---
Author Name Unknown Organization [facility] Address [address] [place] [address] Care Team Providers Care Wireless Consultant Name Role Phone No Ref-Primary, Physician Primary [...] Comments Blood Pressure 115/55 05/31/2016 12:37 PM SOFTWARE LICENSING SPECIALIST Pulse 75 05/31/2016 11:01 AM SOFTWARE LICENSING SPECIALIST Temperature 36.6 ??C (97.8 ??F) 05/31/2016 11:[address] Respiratory Rate 18 05/31/2016 11:01 AM SOFTWARE LICENSING SPECIALIST Oxygen Saturation 97% 05/31/2016 12:39 PM SOFTWARE LICENSING SPECIALIST Inhaled Oxygen Concentration - - Weight 81.9 kg (180 lb 8 oz) 05/28/2016 9:03 AM SOFTWARE LICENSING SPECIALIST Height 170.2 cm (5' 7) 05/28/2016 9:03 AM SOFTWARE LICENSING SPECIALIST Body Mass Index 28.27 05/28/2016 9:03 AM SOFTWARE LICENSING SPECIALIST Plan of Treatment Not on file Care Teams Wireless Consultant Relationship Specialty Start Date End Date No Ref-Primary, Physician PCP - General 05/31/16
--- NOTE | 2023-08-29 01:55 | ED.BACK ---
HPI - Back Pain/Injury General Chief Complaint: Back Injury/Pain Stated Complaint: back pain Time Seen by Provider: 08/29/23 01:46 History of Present Illness HPI Narrative: Patient is a 47-year-old woman well known to me who has chronic neck and back pain she twisted awkwardly yesterday and now has pain down the right side of her buttocks. She has no bowel or bladder symptoms no fever chills. She has had no other acute injuries over signs of bony fracture. The pain is severe. She has not been able to keep the pain under control with Tylenol or Motrin and has not tolerated narcotic pain medicine in the past. She is in the process of full workup both with [facility] and [facility]. She has physical therapy appointment on Wednesday but is unable to make it through. Patient is able to ambulate without any difficulty. Pain is localized to the buttocks and posterior thigh on the right. Related Data Home Medications Medication Instructions Recorded Confirmed testosterone 10 mg/0.5 2 pump transdermal QAM 07/14/22 08/29/23 gram/actuation transdermal gel pump ergocalciferol (vitamin D2) 1,250 1,250 mcg PO DAILY 09/18/22 08/29/23 mcg (50,000 unit) capsule buspirone 10 mg tablet 10 mg PO BID 04/06/23 08/29/23 gabapentin 100 mg capsule 100 - 300 mg PO 3XD PRN pain 08/29/23 08/29/23 Previous Rx's Medication Instructions Recorded epinephrine 0.3 mg/0.3 mL 0.3 mg (0.3 mL) IM Q5-15M PRN #2 ea 09/18/22 injection, auto-injector (EpiPen 2-Riley) blood-glucose meter,continuous #1 ea 06/08/23 (FreeStyle Rosemarie 3 Littcarr) blood-glucose sensor (FreeStyle #2 ea 06/08/23 Rosemarie 3 Sensor device) metformin 500 mg tablet 500 mg PO QDAY #30 tabs 06/08/23 semaglutide 0.25 mg or 0.5 mg (2 0.5 mg (0.736 mL) subcut QWEEK #3 08/24/23 mg/3 mL) subcutaneous pen injector mL (Ozempic) Allergies Allergy/AdvReac Type Severity Reaction Status Date / Time bee venom protein (honey bee) Allergy Severe Anaphylaxis Verified 08/29/23 01:47 Review of Systems Status of ROS: Reports: 10 or more systems reviewed and unremarkable except as noted in History and below [facility] Medical History Diabetes ?E11.9 - Type 2 diabetes mellitus without complications (ICD-10) History of vitamin D deficiency ?Z86.39 - Personal history of other endocrine, nutritional and metabolic disease (ICD-10) Dyslipidemia ?E78.5 - Hyperlipidemia, unspecified (ICD-10) Fatigue ?R53.83 - Other fatigue (ICD-10) Elevated blood sugar ?R73.9 - Hyperglycemia, unspecified (ICD-10) History of gestational diabetes ?Z86.32 - Personal history of gestational diabetes (ICD-10) Depression with anxiety ?F41.8 - Other specified anxiety disorders (ICD-10) Celiac disease ?K90.0 - Celiac disease (ICD-10) Abnormal liver function (01/09/11) ?R94.5 - Abnormal results of liver function studies (ICD-10) Long-term current use of testosterone replacement therapy ?Z79.890 - Hormone replacement therapy (ICD-10) Angioedema ?T78.3XXA - Angioneurotic edema, initial encounter (ICD-10) Omental infarction (2002) ?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 - Acute infarction of intestine, part and extent unspecified (ICD-10) Cervical radiculopathy ?M54.12 - Radiculopathy, cervical region (ICD-10) Eczema ?L30.9 - Dermatitis, unspecified (ICD-10) Pleuritic chest pain ?R07.81 - Pleurodynia (ICD-10) Surgical History History of breast lift (2003) ?Z98.890 - Other specified postprocedural states (ICD-10) History of bilateral carpal tunnel release (2010) ?Z98.890 - Other specified postprocedural states (ICD-10) Status post surgical removal of both fallopian tubes ?Z90.79 - Acquired absence of other genital organ(s) (ICD-10) Status post hysterectomy (2018) ?Z90.710 - Acquired absence of both cervix and uterus (ICD-10) History of appendectomy (2002) ?Z90.49 - Acquired absence of other specified parts of digestive tract (ICD-10) Family History Paternal Grandmother Myocardial infarction, Onset Age: 70 Maternal Grandmother Gallbladder cancer Mother Type 2 diabetes mellitus Lewy body dementia, Onset Age: 65 Alzheimers disease, Onset Age: 65 Maternal Grandfather Lewy body dementia, Onset Age: 78 Alzheimers disease, Onset Age: 78 Father Rheumatoid arthritis Social History Narrative: , works in [employer] office, 3 kids Exercise 5 days a week weights and cardio 30 minute Lifetime nonsmoker Rare alcohol use What is your current living situation?: I presently have a place to live Problems where you live: no known problems In the past 12 months, utilities in danger of being shut off: no In past 12 months, lack of transportation kept you from medical appts, meetings, work, or getting things needed for daily living: no In the past 12 mos, have been you worried that your food would run out before you had money to buy more?: never true In the past 12 mos, the food you bought just didn't last and you didn't have money to buy more?: never true Smoking Status: Never smoker Do you use any of these nicotine containing products: None Second hand tobacco smoke exposure: No How often do you have a drink containing alcohol: never AUDIT-C Alcohol total score: 0 Non-prescribed substance use: denies use How often does anyone, including family, friends and others, physically hurt you: never How often does anyone, including family, friends and others, insult or talk down to you: never How often does anyone, including family, friends and others, threaten you with harm: never How often does anyone, including family, friends and others, scream or curse at you: never Little interest or pleasure in doing things: not at all Feeling down, depressed, or hopeless: not at all service: No Exam Narrative: Exam Narrative: EXAM GENERAL: Patient appears uncomfortable. EYES: No scleral icterus. LYMPH: No supraclavicular or cervical lymphadenopathy. SKIN: Visible skin seen during exam normal or with benign process only. EXT: No dependent lower extremity pedal edema. HEART: Regular rate and rhythm with no murmurs, rubs, or gallops. LUNGS: Clear to auscultation bilaterally with no crackles or wheezes. ABD: Soft, non tender, non distended. PSYCH: Good eye contact, speech is not pressured. Neurologic cranial nerves 2-12 grossly intact no focal defects. Const: Vital Signs, click to edit/add: Vital Signs - 24 hr 08/29/23 01:43 Temperature 98.0 F Pulse Rate [Right Pulse Oximeter] 89 Respiratory Rate 18 Blood Pressure [Ri ght Upper Arm] 154/78 H Pulse Oximetry 99 Oxygen Delivery Me thod Room Air Course Course ED Course: Patient seen and examined. Vital Signs Vital signs: Initial Vital Signs Temperature 98.0 F 08/29/23 01:43 Temperature Source Temporal Artery Scan 08/29/23 01:43 Pulse Rate 89 08/29/23 01:43 Respiratory Rate 18 08/29/23 01:43 Blood Pressure 154/78 H 08/29/23 01:43 Blood Pressure Mean 103 08/29/23 01:43 Blood Pressure Position Sitting 08/29/23 01:43 Pulse Oximetry 99 08/29/23 01:43 Oxygen Delivery Method Room Air 08/29/23 01:43 Vital Signs Temperature 98.0 F 08/29/23 01:43 Pulse Rate 89 08/29/23 01:43 Respiratory Rate 18 08/29/23 01:43 Blood Pressure 154/78 H 08/29/23 01:43 Pulse Oximetry 99 08/29/23 01:43 Oxygen Delivery Method Room Air 08/29/23 01:43 Temperature 98.0 F 08/29/23 01:43 Pulse Rate 89 08/29/23 01:43 Respiratory Rate 18 08/29/23 01:43 Blood Pressure 154/78 H 08/29/23 01:43 Pulse Oximetry 99 08/29/23 01:43 Oxygen Delivery Method Room Air 08/29/23 01:43 MDM - Back Pain/Injury MDM Narrative Medical decision making narrative: Patient is a 47-year-old woman who unfortunately has sciatica on the right. She has no concerning symptoms of impinged spinal cord or abscess. She is not tolerate narcotics will be treated with Toradol IM 30 mg x 1 as well as prednisone 20 mg b.i.d. for 5 days. Also prescribed tramadol for her she can take on a p.r.n. basis. She will keep her outpatient follow-up with her spinal Dr. differential diagnosis includes sciatica nerve impingement abscess diskitis meningitis muscle strain. Discharge Plan Discharge Clinical Impression: Sciatica Patient Disposition: Home, Self-Care Condition: Stable Instructions: Sciatica (ED) Additional Instructions: Tramadol as directed Prednisone as directed Keep outpatient follow up Ice Tylenol Activity Level: No Restrictions Discharge Diet: Regular Prescriptions: No Action testosterone 10 mg/0.5 gram /actuation gel in metered-dose pump 2 pump transdermal QAM Rx Instructions: apply evenly over front and inner area of EACH thigh; avoid water for >=2 hrs buspirone 10 mg tablet 10 mg PO BID metformin 500 mg tablet 500 mg PO QDAY Qty: 30 0RF (DME) FreeStyle Rosemarie 3 Sensor Device See Rx Instructions .Route Qty: 2 0RF Rx Instructions: As directed (DME) FreeStyle Rosemarie 3 Littcarr Misc See Rx Instructions .Route Qty: 1 0RF Rx Instructions: As directed ergocalciferol (vitamin D2) 1,250 mcg (50,000 unit) capsule 1,250 mcg PO DAILY epinephrine [EpiPen 2-Riley] 0.3 mg/0.3 mL auto-injector 0.3 mg IM Q5-15M PRNQty: 2 0RF Rx Instructions: do not exceed 3 doses per episode gabapentin 100 mg capsule 100 - 300 mg PO 3XD PRN (Reason: pain) Ozempic 0.25 mg or 0.5 mg (2 mg/3 mL) pen injector 0.5 mg subcut QWEEK Qty: 3 0RF Follow Up/Referrals: Luis Rueda MD [Primary Care Provider] - Stand Alone Forms: [employer] Info Instructions
[2023-08-29 02:01] VITALS: TEMP 36.7
[2023-08-29] MEDS: KETOROLAC 30 MG/ML inj IM (02:01)
--- OUTSIDE RECORDS SUMMARY | 2023-08-29 02:06 | XMS_ITS | Continuity of Care Document ---
Author Name Unknown Organization [facility] Address [address] [place] [address] Phone Care Team Providers Care Sales Development Coordinator Name Role Phone Dc Laguna MD Unavailable Unavailable Procedures Procedure Date Office/Outpatient Visit,[facility] 2022 Advance Directives Directive Yes / No Effective Date File Name No Information Encounters Encounter Description Practice Location Reason(s) For Visit Diagnoses Date Provider Providers Copied on Encounter Office/Outpat ient Visit,[facility], [facility], [address], [place], [place], [id number], [place] tel:[phone] [facility] Other cervical disc displacement, cervicothoracic region 3 Jase Irwin. [facility] [place], [address] [place] [address], [address], [id number] , [place]. tel:[phone] [facility] [address] [place] [address], [address]. tel:[phone] Family History Family Member Type Diagnosis Age At Onset No Information Payers Payer name Insurance type Covered green party ID Authoriza tion(s) [facility] [employer] BL [id number] Social History Type Description Quantity Date Captured [...]
--- OUTSIDE RECORDS SUMMARY | 2023-08-29 02:06 | XMS_ITS | Encounter Summary ---
Author Name Unknown Organization [facility] Address [address] [place] [address] Care Team Providers Care Sales Representative Uniforms Name Role Phone Elsewhere, Pcp Primary Care Provider Unavailabl e Encounter Details Date Type Department Care Team (Late st Contact Info) Description 06/21/2009 Historical Ophthalmology [facility] O[facility] Aziza Ng O.D. [address] [place] [phone] Social History Tobacco Use Types Packs/Day Years Used Date Smoking Tobacco: Never Assessed Sex and Gender Information Value Date Recorded Sex Assigned at Female 04/29/2018 7:45 PM BUFFING MACHINE TENDER Gender Identity Female 04/29/2018 7:45 PM BUFFING MACHINE TENDER Sexual Orientation Straight 04/29/2018 7: 45 PM BUFFING MACHINE TENDER documented as of this encounter Progress Notes * Aziza Ng O.D. - 06/21/2009 4:15 PM CST Contact Lens Exam MULTI-VISIT DOCUMENT This document contains multiple patient visits and is available for review in Document Viewer. CDM Reports - EYECL Id: [id number] Status: Fnl documented in this encounter Plan of Treatment Not on file documented as of this encounter Visit Diagnoses Not on filedocumented in this encounter Care Teams Sales Representative Uniforms Relationship Specialty Start Date End Date Elsewhere, Pcp PCP - General Internal Medicine 10/28/18 documented as of this encounter
--- OUTSIDE RECORDS SUMMARY | 2023-08-29 02:06 | XMS_ITS | Encounter Summary ---
Author Name Unknown Organization [facility] Address [address] [place] [address] Care Team Providers Care Handicapped Teacher Name Role Phone Elsewhere, Pcp Primary Care Provider Unavailabl e Encounter Details Date Type Department Care Team (Late st Contact Info) Description 06/17/2009 Historical Ophthalmology [facility] [place] [address] Social History Tobacco Use Types Packs/Day Years Used Date Smoking Tobacco: Never Assessed Sex and Gender Information Value Date Recorded Sex Assigned at Female 04/29/2018 7:45 PM MANAGER FRAUD Gender Identity Female 04/29/2018 7:45 PM MANAGER FRAUD Sexual Orientation Straight 04/29/2018 7: 45 PM MANAGER FRAUD documented as of this encounter Progress Notes [...] #2 chronic blepharitis #3 giant papillary conjunctivitis [facility] Reports - EYEGEN Id: [id number] Status: Fnl documented in this encounter Plan of Treatment Not on file documented as of this encounter Visit Diagnoses Not on filedocumented in this encounter Care Teams Handicapped Teacher Relationship Specialty Start Date End Date Elsewhere, Pcp PCP - General Internal Medicine 10/28/18 documented as of this encounter
--- OUTSIDE RECORDS SUMMARY | 2023-08-29 02:06 | XMS_ITS | Encounter Summary ---
Author Name Unknown Organization [facility] Address [address] [place] [address] Care Team Providers Care Addiction Psychiatrist Name Role Phone Elsewhere, Pcp Primary Care Provider Unavailabl e Encounter Details Date Type Department Care Team ([facility] st Contact Info) Description 05/27/2023 Orders Only Division of Gastroenterology in [place], [place] [address] [place] [address] Jayden Vieyra M.D. [address] [place] [address] Genetic Susceptibility To Disease Social History Tobacco [...] than three times a week 11/19/2021 Attends Church Services Not on file 11/19 Do you belong to any clubs o r organizations such as moravian groups, unions, fraternal or athletic groups, or [...] and heating? Not hard at all 11/19/2021 [facility] of Occupat ional Health - Occupational Stress [...] Sex Assigned at Female 04/29/2018 7:45 PM PLOW SHAKER Gender Identity Female 04/29/2018 7:45 PM PLOW SHAKER Sexual Orientation Straight 04/29/2018 7: 45 PM PLOW SHAKER documented as of this encounter Plan of Treatment Not on file documented as of this encounter Procedures Procedure Name Priority Date/Time Associated Diagnosis Comments EXT TAPESTRY Routine 04/19/2021 12:00 AM PLOW SHAKER Genetic Susceptibility To Disease documented in this encounter Results * EXT Tapestry (04/19/2021 12:00 AM PLOW SHAKER) Gene Studied BRCA1,BRCA2,MLH1,MSH 2, MSH6,PMS2,EPCAM,APOB,L DLR,LDLRAP1,PCSK9 05/20/2021 12:00 AM PLOW SHAKER AJ Genetic Disease Assessed Evaluation of 11 genes associated with Hereditary Breast and Ovarian Cancer, Valdez Syndrome and Familial Hypercholesterolemia. 05/20/2021 12:00 AM [facility] Genetic Analysis Overall Interpretation Negative results through Tapestry do not replace diagnostic testing for patients with a personal or family history of cancer/hypercholestero lemia due to limitations with methodology. Consider a referral to a genetic counselor for diagnostic testing if warranted. 05/20/2021 12:00 AM [facility] Genetic Analysis Report See Tapestry PDF Report [...] enriched using a custom set of reagents ([employer]+ chemistry). Targeted regions were sequenced using an Illumina DNA sequencing system. Your sequence was matched to a modified version of the sarles standard reference genome (GRCh38). Variant calling was completed using a customized version of [employer]'s iCrossingq software, requiring 20x coverage for validated variant calls. Copy Number Variants (CNVs) were called using a proprietary bioinformatics pipeline that compared the coverage profile of your sample with the coverage profiles of other reference set samples. [facility] then analyzed the generated variant data for the exons and 10 bp of flanking intronic sequence (and select tagged intronic variants) of the 11 genes included in Sound Clips from the Echograph Database. Your sample was reviewed for single [...] assessments and medical management. 05/20/2021 12:00 AM PLOW SHAKER AJ Human Reference Sequence Assembly GRCh38 05/20/2021 12:00 AM PLOW SHAKER AJ Saliva (Mouth) 04/19/2021 Jayden Vieyra M.D. [facility] GENET[facility] [place] [address], [address] [place] [address], [facility] [place] [address], [address]. [place] [address] documented in this encounter Visit Diagnoses Diagnosis Genetic Susceptibility To Disease documented in this encounter Care Teams Addiction Psychiatrist Relationship Specialty Start Date End Date Elsewhere, Pcp PCP - General Internal Medicine 10/28/18 documented as of this encounter
--- OUTSIDE RECORDS SUMMARY | 2023-08-29 02:06 | XMS_ITS | Encounter Summary ---
Author Name Unknown Organization [facility] Address [address] [place] [address] Care Team Providers Care Ocean Transportation Intermediary Name Role Phone Elsewhere, Pcp Primary Care Provider Unavailabl e Encounter Details Date Type Department Care Team (Late st Contact Info) Description 04/20/2007 Historical Ophthalmology RST OPH Aziza Ng O.D. [address] [place] [address] Social History Tobacco Use Types Packs/Day Years Used Date Smoking Tobacco: Never Assessed Sex and Gender Information Value Date Recorded Sex Assigned at Female 04/29/2018 7:45 PM MEDICAL RECORDS ANALYST Gender Identity Female 04/29/2018 7:45 PM MEDICAL RECORDS ANALYST Sexual Orientation Straight 04/29/2018 7: 45 PM MEDICAL RECORDS ANALYST documented as of this encounter Progress Notes [...] (myopia, stable). CDM Reports - EYEGEN Id: [id number] Status: Fnl documented in this encounter Plan of Treatment Not on file documented as of this encounter Visit Diagnoses Not on filedocumented in this encounter Care Teams Ocean Transportation Intermediary Relationship Specialty Start Date End Date Elsewhere, Pcp PCP - General Internal Medicine 10/28/18 documented as of this encounter
--- OUTSIDE RECORDS SUMMARY | 2023-08-29 02:06 | XMS_ITS | Encounter Summary ---
Author Name Unknown Organization [facility] Address [address] [place] [address] Care Team Providers Care Gear Grinding Machine Operator Name Role Phone Elsewhere, Pcp Primary Care Provider Unavailabl e Encounter Details Date Type Department Care Team (Late st Contact Info) Description 05/14/2008 Historical Ophthalmology RST OPH Darlene Wei O.D. [address] [place] [address] Social History Tobacco Use Types Packs/Day Years Used Date Smoking Tobacco: Never Assessed Sex and Gender Information Value Date Recorded Sex Assigned at Female 04/29/2018 7:45 PM INTERACTIVE PRODUCER Gender Identity Female 04/29/2018 7:45 PM INTERACTIVE PRODUCER Sexual Orientation Straight 04/29/2018 7: 45 PM INTERACTIVE PRODUCER documented as of this encounter Progress Notes [...] problem. #2 Refractive error (myopic astigmatism, myopia). [facility] Reports - EYEGEN Id: [id number] Status: Fnl documented in this encounter Plan of Treatment Not on file documented as of this encounter Visit Diagnoses Not on filedocumented in this encounter Care Teams Gear Grinding Machine Operator Relationship Specialty Start Date End Date Elsewhere, Pcp PCP - General Internal Medicine 10/28/18 documented as of this encounter
--- OUTSIDE RECORDS SUMMARY | 2023-08-29 02:06 | XMS_ITS | Encounter Summary ---
Author Name Unknown Organization [facility] Address [address] [place] [address] Care Team Providers Care Chief Knowledge Officer Name Role Phone Elsewhere, Pcp Primary Care Provider Unavailabl e Encounter Details Date Type Department Care Team (Late st Contact Info) Description 03/09/2003 Historical Ophthalmology RST OPH Aziza Ng O.D. [address] [place] [phone] Social History Tobacco Use Types Packs/Day Years Used Date Smoking Tobacco: Never Assessed Sex and Gender Information Value Date Recorded Sex Assigned at Female 04/29/2018 7:45 PM INSIDE SALES SPECIALIST Gender Identity Female 04/29/2018 7:45 PM INSIDE SALES SPECIALIST Sexual Orientation Straight 04/29/2018 7: 45 PM INSIDE SALES SPECIALIST documented as of this encounter Progress Notes * Aziza Ng O.D. - 03/09/2003 12:00 AM CST Contact Lens Exam MULTI-VISIT DOCUMENT This document contains multiple patient visits and is available for review in Document Viewer. CDM Reports - EYECL Id: [id number] Status: Fnl documented in this encounter Plan of Treatment Not on file documented as of this encounter Visit Diagnoses Not on filedocumented in this encounter Care Teams Chief Knowledge Officer Relationship Specialty Start Date End Date Elsewhere, Pcp PCP - General Internal Medicine 10/28/18 documented as of this encounter
--- OUTSIDE RECORDS SUMMARY | 2023-08-29 02:06 | XMS_ITS ---
Author Name Unknown Organization [facility] Address [address] [place] [address] Care Team Providers Care Crusher And Binder Operator Name Role Phone Unavailable Unavailable Unavailable Surgery Details Not on file Complications Check Surgery Details section. Procedure Estimated Blood Loss Check Surgery Details section. Procedure Findings Check Surgery Details section. Procedure Specimens Taken Check Surgery Details section.
--- OUTSIDE RECORDS SUMMARY | 2023-08-29 02:06 | XMS_ITS | Encounter Summary ---
Author Name Unknown Organization [facility] Address [address] [place] [address] Care Team Providers Care Chief Growth Officer Name Role Phone Elsewhere, Pcp Primary Care Provider Unavailabl e Encounter Details Date Type Department Care Team (Late st Contact Info) Description 06/05/2009 Historical Ophthalmology RST OPH Aziza Ng O.D. [address] [place] [address] Social History Tobacco Use Types Packs/Day Years Used Date Smoking Tobacco: Never Assessed Sex and Gender Information Value Date Recorded Sex Assigned at Female 04/29/2018 7:45 PM MEATMAN Gender Identity Female 04/29/2018 7:45 PM MEATMAN Sexual Orientation Straight 04/29/2018 7: 45 PM MEATMAN documented as of this encounter Progress Notes * Aziza Ng O.D. - 06/05/2009 12:52 PM CST Eye General CHIEF COMPLAINT Dry eyes HISTORY OF PRESENT ILLNESS Primarily a spectacles lens wearer; from 2009 or 2008; distance blur during ; feels like vision has returned to normal. Wears soft contacts party plan dealer; not by choice; lenses are uncomfortable; dry [...] chronic problem. CDM Reports - EYEGEN Id: [id number] Status: Fnl documented in this encounter Plan of Treatment Not on file documented as of this encounter Visit Diagnoses Not on filedocumented in this encounter Care Teams Chief Growth Officer Relationship Specialty Start Date End Date Elsewhere, Pcp PCP - General Internal Medicine 10/28/18 documented as of this encounter
--- OUTSIDE RECORDS SUMMARY | 2023-08-29 02:06 | XMS_ITS | Referral Summary ---
Author Name Unknown Organization [facility] Address [address] [place] [address] Care Team Providers Care Template Worker Name Role Phone Elsewhere, Pcp Primary Care Provider Unavailabl e Source Comments Patient records contain information from all sites at [facility]. For routine questions regarding patient records, call [phone] during business hours, M-F 8:00 AM - 5:00 PM Central Time. Record requests for emergency care only can be directed to [phone] at any time.[facility] Allergies Active Allergy Reactions Criticality [...] than three times a week 11/19/2021 Attends Restoration[employer] Services Not on file 11/19 Do you [...] and heating? Not hard at all 11/19/2021 [facility] of Occupat ional Health - Occupational Stress [...] Sex Assigned at Female 04/29/2018 7:45 PM BAKER PIE Gender Identity Female 04/29/2018 7:45 PM BAKER PIE Sexual Orientation Straight 04/29/2018 7: 45 PM BAKER PIE Last Filed Vital Signs Vital Sign Reading [...] on file Medical Devices Implanted Type Area Preschool Substitute Teacher Device Identifier Shelf Expiration Date Model / Serial / Lot Geo Alvarado Polyprp Ptch 6x6 - [id number] Implanted:Qty: 1 on 12/26/2018 by Nicholas Parsons M.D. at [facility] Mesh or Patch Ethicon 11/10/2023 [facility] / / [id number] Sling Transvag Mid-Ureth Quang - [id number] Implanted:Qty: 1 on 12/26/2018 by Nicholas Parsons M.D. at [facility] Mesh or Patch [employer] 09/29/2021 [id number] / / [id number] Procedures Procedure Name Priority Date/Time Associated Diagnosis Comments BI BREAST SCREENING BILATERAL WITH TOMOSYNTHESIS Routine 06/24/2022 10:22 AM CDT EXTI GLUCOSE, RANDOM, S/P Routine 01/03/2020 9:55 AM CDT EXTI LIPID PANEL W REFLEX MEASURED LDL Routine 01/03/2020 9:55 AM CDT COLONOSCOPY Routine 05/13/2018 1:24 PM BAKER PIE Sprue Celiac (HCC) from Last 3 Months or Most Recently Relevant to Health Maintenance Advance Directives For more information, please contact: [phone] Documents on File Type Date Recorded Patient Civil Rights Representative Expl anation Advance Directives 10/11/2009 12:00 AM Lega judy document. See document viewer. * Full Code (Latest Code Status on File) Date Activated Date Inactivated Comments 12/26/2018 4:30 PM 12/27/2018 7:44 PM Question Answer Comments Full Code: Discussed Care Teams Template Worker Relationship Specialty Start Date End Date Elsewhere, Pcp PCP - General Internal Medicine 10/28/18
--- OUTSIDE RECORDS SUMMARY | 2023-08-29 02:06 | XMS_ITS | Clinical Summary ---
Author Name Unknown Organization [facility] Address [address] [place] [address] Care Team Providers Care Ship'S Engineer Name Role Phone Elsewhere, Pcp Primary Care Provider Unavailabl e Source Comments Patient records contain information from all sites at [facility]. For routine questions regarding patient records, call [phone] during business hours, M-F 8:00 AM - 5:00 PM Central Time. Record requests for emergency care only can be directed to [phone] at any time.[facility] Allergies Active Allergy Reactions Criticality Noted Date [...] than three times a week 11/19/2021 Attends Mu-Ism Services Not on file 11/19 Do you belong to any clubs o r organizations such as gnosticist groups, unions, fraternal or athletic groups, or [...] and heating? Not hard at all 11/19/2021 [facility] of Occupat ional Health - Occupational Stress [...] place to sleep or slept in a detention (including now)? No 11/19/2021 Nutrition Answer Date [...] Sex Assigned at Female 04/29/2018 7:45 PM CLEAR COAT SPRAYER Gender Identity Female 04/29/2018 7:45 PM CLEAR COAT SPRAYER Sexual Orientation Straight 04/29/2018 7: 45 PM CLEAR COAT SPRAYER Last Filed Vital Signs Vital Sign Reading [...] this topic Medical Devices Implanted Type Area Shuttle Operator Device Identifier Shelf Expiration Date Model / Serial / Lot [facility] Vanessa Alvarado Polyprp [facility] 6x6 - [id number] Implanted:Qty: 1 on 12/26/2018 by Nicholas Parsons M.D. at [facility] Mesh or Patch [employer] 11/10/2023 M3 / / [id number] Sling Transvag Mid-Ureth Quang - [id number] Implanted:Qty: 1 on 12/26/2018 by Nicholas Parsons M.D. at [facility] Mesh or Patch [employer] 09/29/2021 [id number] V / / [id number] Procedures Procedure Name Priority Date/Time Associated Diagnosis Comments BI BREAST SCREENING BILATERAL WITH TOMOSYNTHESIS Routine 06/24/2022 10:22 AM CDT EXTI GLUCOSE, RANDOM, S/P Routine 01/03/2020 9:55 AM CDT EXTI LIPID PANEL W REFLEX MEASURED LDL Routine 01/03/2020 9:55 AM CDT COLONOSCOPY Routine 05/13/2018 1:24 PM CLEAR COAT SPRAYER Sprue Celiac (HCC) from Last 3 Months or Most Recently Relevant to Health Maintenance Advance Directives For more information, please contact: [phone] Documents on File Type Date Recorded Patient Janitor Custodian Expl anation Advance Directives 10/11/2009 12:00 AM Lega cy document. See document viewer. * Full Code (Latest Code Status on File) Date Activated Date Inactivated Comments 12/26/2018 4:30 PM 12/27/2018 7:44 PM Question Answer Comments Full Code: Discussed Care Teams Ship'S Engineer Relationship Specialty Start Date End Date Elsewhere, Pcp PCP - General Internal Medicine 10/28/18
--- OUTSIDE RECORDS SUMMARY | 2023-08-29 02:06 | XMS_ITS | Encounter Summary ---
Author Name Unknown Organization [facility] Address [address] [place] [address] Care Team Providers Care Area Operations Manager Name Role Phone Elsewhere, Pcp Primary Care Provider Unavailabl e Encounter Details Date Type Department Care Team (Late st Contact Info) Description 05/17/2007 Historical Ophthalmology RST OPH Aziza Ng O.D. [address] [place] [phone] Social History Tobacco Use Types Packs/Day Years Used Date Smoking Tobacco: Never Assessed Sex and Gender Information Value Date Recorded Sex Assigned at Female 04/29/2018 7:45 PM ROPING TENDER Gender Identity Female 04/29/2018 7:45 PM ROPING TENDER Sexual Orientation Straight 04/29/2018 7: 45 PM ROPING TENDER documented as of this encounter Progress Notes * Aziza Ng O.D. - 05/17/2007 2:45 PM CST Contact Lens Exam MULTI-VISIT DOCUMENT This document contains multiple patient visits and is available for review in Document Viewer. CDM Reports - EYECL Id: [id number] Status: Fnl documented in this encounter Plan of Treatment Not on file documented as of this encounter Visit Diagnoses Not on filedocumented in this encounter Care Teams Area Operations Manager Relationship Specialty Start Date End Date Elsewhere, Pcp PCP - General Internal Medicine 10/28/18 documented as of this encounter
--- OUTSIDE RECORDS SUMMARY | 2023-08-29 02:06 | XMS_ITS | Encounter Summary ---
Author Name Unknown Organization [facility] Address [address] [place] [address] Care Team Providers Care Hook Loader Name Role Phone Elsewhere, Pcp Primary Care Provider Unavailabl e Encounter Details Date Type Department Care Team (Late st Contact Info) Description 12/03/2003 Historical Ophthalmology RST OPH [place] [address] Social History Tobacco Use Types Packs/Day Years Used Date Smoking Tobacco: Never Assessed Sex and Gender Information Value Date Recorded Sex Assigned at Female 04/29/2018 7:45 PM FORMING ACID DUMPER Gender Identity Female 04/29/2018 7:45 PM FORMING ACID DUMPER Sexual Orientation Straight 04/29/2018 7: 45 PM FORMING ACID DUMPER documented as of this encounter Progress Notes [...] papillary conjunctivitis CD Reports - EYEGEN Id: [id number] Status: Fnl documented in this encounter Plan of Treatment Not on file documented as of this encounter Visit Diagnoses Not on filedocumented in this encounter Care Teams Hook Loader Relationship Specialty Start Date End Date Elsewhere, Pcp PCP - General Internal Medicine 10/28/18 documented as of this encounter
--- OUTSIDE RECORDS SUMMARY | 2023-08-29 02:06 | XMS_ITS | Encounter Summary ---
Author Name Unknown Organization [facility] Address [address] [place] [address] Care Team Providers Care Mixed Crop And Livestock Farm Worker Name Role Phone Elsewhere, Pcp Primary Care Provider Unavailabl e Encounter Details Date Type Department Care Team (Late st Contact Info) Description 10/21/2006 Historical Ophthalmology RST OPH Rambo Medeiros M.D., Ph.D. [address] [place] [phone] (Work) Social History Tobacco Use Types Packs/Day Years Used Date Smoking Tobacco: Never Assessed Sex and Gender Information Value Date Recorded Sex Assigned at Female 04/29/2018 7:45 PM INSIGHTS ANALYST Gender Identity Female 04/29/2018 7:45 PM INSIGHTS ANALYST Sexual Orientation Straight 04/29/2018 7: 45 PM INSIGHTS ANALYST documented as of this encounter Progress [...] Dry eye CDM Reports - EYEGEN Id: [id number] Status: Fnl documented in this encounter Plan of Treatment Not on file documented as of this encounter Visit Diagnoses Not on filedocumented in this encounter Care Teams Mixed Crop And Livestock Farm Worker Relationship Specialty Start Date End Date Elsewhere, Pcp PCP - General Internal Medicine 10/28/18 documented as of this encounter
--- OUTSIDE RECORDS SUMMARY | 2023-08-29 02:06 | XMS_ITS | Encounter Summary ---
Author Name Unknown Organization [facility] Address [address] [place] [address] Care Team Providers Care Healthcare Administration Internship Name Role Phone Elsewhere, Pcp Primary Care Provider Unavailabl e Encounter Details Date Type Department Care Team (Late st Contact Info) Description 10/18/2002 Historical Ophthalmology RST OPH [place] [address] Social History Tobacco Use Types Packs/Day Years Used Date Smoking Tobacco: Never Assessed Sex and Gender Information Value Date Recorded Sex Assigned at Female 04/29/2018 7:45 PM ROLLER LEVELER Gender Identity Female 04/29/2018 7:45 PM ROLLER LEVELER Sexual Orientation Straight 04/29/2018 7: 45 PM ROLLER LEVELER documented as of this encounter Progress Notes [...] papillary conjunctivitis CDM Reports - EYEGEN Id: [id number] Status: Fnl documented in this encounter Plan of Treatment Not on file documented as of this encounter Visit Diagnoses Not on filedocumented in this encounter Care Teams Healthcare Administration Internship Relationship Specialty Start Date End Date Elsewhere, Pcp PCP - General Internal Medicine 10/28/18 documented as of this encounter
--- OUTSIDE RECORDS SUMMARY | 2023-08-29 02:07 | XMS_ITS | Clinical Summary ---
Author Name Unknown Organization [facility] Address [address] [place] [address] Care Team Providers Care Funeral Home Attendant Name Role Phone No Ref-Primary, Physician Primary [...] Comments Blood Pressure 115/55 05/31/2016 12:37 PM RETAIL WAREHOUSE ASSOCIATE Pulse 75 05/31/2016 11:01 AM RETAIL WAREHOUSE ASSOCIATE Temperature 36.6 ??C (97.8 ??F) 05/31/2016 11:[address] Respiratory Rate 18 05/31/2016 11:01 AM RETAIL WAREHOUSE ASSOCIATE Oxygen Saturation 97% 05/31/2016 12:39 PM RETAIL WAREHOUSE ASSOCIATE Inhaled Oxygen Concentration - - Weight 81.9 kg (180 lb 8 oz) 05/28/2016 9:03 AM RETAIL WAREHOUSE ASSOCIATE Height 170.2 cm (5' 7) 05/28/2016 9:03 AM RETAIL WAREHOUSE ASSOCIATE Body Mass Index 28.27 05/28/2016 9:03 AM RETAIL WAREHOUSE ASSOCIATE Plan of Treatment Health Maintenance Due Date [...] age to complete this topic Care Teams Funeral Home Attendant Relationship Specialty Start Date End Date No Ref-Primary, Physician PCP - General 05/31/16
--- OUTSIDE RECORDS SUMMARY | 2023-08-29 02:07 | XMS_ITS | Clinical Summary ---
Author Name Unknown Organization [facility] Address [place], [place] [address] Care Team Providers Care Tower Hoist Operator Name Role Phone Mica Pandey ANTIQUE COLLECTOR Unavailable [phone] Consultants, [facility] Unavailable Vaneva Doug Campbell NP Primary Care Provider [phone] Allergies Active Allergy Reactions Criticality Noted Date Comments Venom-Honey Bee Hives High 09/26/2018 Medications Medication Sig Dispensed Refills Start Date End Date Status Xzibd-1-AAU-EPA-Fish Oil (FISH OIL) 1,000 mg (120 mg-180 [...] 7:30 03/30 at 39+0) Problems: --(TATY from [facility] at 30+5) --GDMA2: humulin 18 U [...] ed during surgery Paternal Grandmother (Age 70) [place] Social History Tobacco Use Types Packs/Day Years [...] oz) M Vag-Spont Maribell ng Delivery Location:[facility] 11/23 Term 40w 0d 3.97 kg (8 lb 12 oz) M Vag Maribell ng 05/02 SAB 03/30 Term 39w 1d 3.32 kg (7 lb 5 oz) F Vag Epidu ral Maribell ng 9 9 [place] -[place],BG SHAHID S[facility]NEY Dr. Jess Scott Delivery Location:[facility] Last Filed Vital Signs Vital Sign Reading Time Taken Comments Blood Pressure 112/74 04/24/2021 12:27 PM DIRECTOR OF PHYSIOTHERAPY SERVICES Pulse 80 04/24/2021 12:27 PM DIRECTOR OF PHYSIOTHERAPY SERVICES Temperature 36.8 ??C (98.3 ??F) 04/24/2021 1 2:27 PM DIRECTOR OF PHYSIOTHERAPY SERVICES Respiratory Rate 18 04/01/2016 9:55 AM DIRECTOR OF PHYSIOTHERAPY SERVICES Oxygen Saturation 98% 03/31/2016 8:3 1 AM DIRECTOR OF PHYSIOTHERAPY SERVICES Inhaled Oxygen Concentration - - Weight 83.7 kg (184 lb 9.6 oz) 05/21/19 11:57 AM DIRECTOR OF PHYSIOTHERAPY SERVICES with shoes Height 168.9 cm (5' 6.5) [...] age 9-49 12/12/2023 3 ([facility]), 02/14/2013, 05/04/2012 Lipids for age 45-75 01/02/2025 [...] medical examination at a health care facility CRM CAMPAIGN MANAGER THIN PREP PAP SCREEN IMAGED Routine 01/03/2020 [...] care provider. XR MAMMO FUNMILAYO BILAT SCREEN [[id number]] CLINICAL HISTORY: ??This is an asymptomatic 46 [...] - 199 mg/dL 01/03/2020 3:29 PM CDT [facility] TRIGLYCERIDES 123 <150 mg/dL 01/03/2020 3:29 PM CDT [facility] HDL CHOLESTEROL 44 >40 mg/dL 0 3:29 PM CDT [facility] NON-HDL CHOLESTEROL 165(H) <145 mg/dl 01/03/2020 3:29 PM CDT [facility] CHOL/HDL RATIO 4.75(H) <4.50 01/03/2020 3:29 PM CDT [facility] LDL CHOLESTEROL 140(H) <=130 mg/dL 01/03/2020 3:29 PM CDT [facility] TRAL [facility] PROVIDER ORDERED STATUS RANDOM 01/03/2020 3:29 PM CDT [facility] Blood BLOOD SPECIMEN / Unknown Venipuncture / Unknown 01/03/2020 9:55 AM CDT 01/03/2020 9:58 AM CDT Ruth Estrella MD CHEMISTRY [facility] [address] [place] [address], * CRM CAMPAIGN MANAGER THIN PREP PAP SCREEN IMAGED (01/03/2020 9:45 AM CDT) Case Report Gynecologic Cytology Report ? Case: [id number] ? Authorizing Provider: ??Ruth Estrella MD ??Collected: ? 01/03/2020 0945 ? Ordering Location: ? [facility] ?Received: ?01/03/2020 1310 ? Clinic ? First Screen: ?Jeanette Valle ? Specimen: ?CRM CAMPAIGN MANAGER ThinPrep Vial Screening, Cervical ? 01/11/2020 2:02 PM CDT [facility] INTERPRETATION/ RESULT NEGATIVE FOR INTRAEPITHELIAL LESION OR MALIGNANCY (NIL) (none) 01/11/2020 2:02 PM CDT [facility] ENTRAL LABORATORY IMEN ADEQUACY Satisfactory for evaluation No endocervical component seen 01/11/2020 2:02 PM CDT [facility] [employer] ENTRAL LABORATORY HPV REQUEST HPV if ASCUS 01/11/2020 2:02 PM CDT [facility] [employer] ENTRAL LABORATORY Date of LMP Hysterectomy 01/11/2020 2:02 PM CDT [facility] [employer] [facility] ENTRAL LABORATORY Last Pap Date 05/01/14 01/11/2020 2:02 PM CDT [facility] ENTRAL LABORATORY Last Pap Result NIL 0 2:02 PM CDT [facility] ENTRAL LABORATORY Abnormal Pap or [place] Bx in last 5 years No 01/11/2020 2:02 PM CDT [facility] ENTRWA LABORATORY Menstrual Status Hysterectomy-cerv ix present 01/11/2020 2:[address] [facility] [place] Bx Done Today No 01/11/2020 2:[address] [facility] Additional Information None given 01/11/2020 2:02 PM CDT [facility] ENTRWA LABORATORY Comment: Cytology is screened at [facility] - [address], [place] [address] and [facility] - [address], [place] [address] and [facility] - [address] [place] [address] Interpreted at [facility] - [address], [place] [address] Automated Review Successful 01/11/2020 2:[address] [facility] Comment:Specimen processed s uccessfully by automated marketing engineer device, ThinPrep Imaging System, [employer] Note The pap test is a [...] and malignant lesions. 01/11/2020 2:[address] [facility] Other (Cervical) Non-Blood / Unknown 01/03/2020 9:45 AM CDT 01/03/2020 1:10 PM CDT Ruth Estrella MD PATHOLOGY/CYTOLO GY [facility] [address] [place] [address], [place] * ANTI HCV (08/30/2012 10:35 AM CDT) ANTI HCV Non-reacti ve [facility] 08/30/2012 10:3 5 AM CDT 08/30/2012 5:02 PM CDT Dinorah Jaime CNM SEND OUTS [facility] [place]NAL ZIP [id number] [place] [address] from Last 3 Months or Most Recently [...] 9:56 AM 05/02/2015 5:11 PM Care Teams Tower Hoist Operator Relationship Specialty [place] [address] [place] [address] PCP - General Nurse Practitioner 06/24/22 Mica Pandey NP Endocrinology 03/30/16 Consultants, [facility] . Other Spatial Scientist Obstetrics and Gynecology 03/30/16
--- OUTSIDE RECORDS SUMMARY | 2023-08-29 02:07 | XMS_ITS | Continuity of Care Document ---
Author Name Unknown Organization [facility] Address [address] [place] [address] Phone Care Team Providers Care Airplane Fueler Name Role Phone Dc Laguna MD Unavailable Unavailable Procedures Procedure Date Office/Outpatient Visit,[facility] 2022 Advance Directives Directive Yes / No Effective Date File Name No Information Encounters Encounter Description Practice Location Reason(s) For Visit Diagnoses Date Provider Providers Copied on Encounter Office/Outpat ient Visit,[facility], [facility], [address], [place], [place], [id number], [place] tel:[phone] [facility] Other cervical disc displacement, cervicothoracic region 3 Jase Irwin. [facility], [address] [place] [address], [address], [id number] , [place]. tel:[phone] [facility] [address] [place] [address], [address]. tel:[phone] Family History Family Member Type Diagnosis Age At Onset No Information Payers Payer name Insurance type Covered constitution party ID Authoriza tion(s) [facility] [employer] BL [id number] Social History Type Description Quantity Date Captured [...]
--- OUTSIDE RECORDS SUMMARY | 2023-08-29 02:07 | XMS_ITS | Referral Summary ---
Author Name Unknown Organization [facility] Address [address] [place] [address] Care Team Providers Care Sewer Pipe Press Operator Name Role Phone No Ref-Primary, Physician Primary [...] Comments Blood Pressure 115/55 05/31/2016 12:37 PM FLEET SALES MANAGER Pulse 75 05/31/2016 11:01 AM FLEET SALES MANAGER Temperature 36.6 ??C (97.8 ??F) 05/31/2016 11:[address] Respiratory Rate 18 05/31/2016 11:01 AM FLEET SALES MANAGER Oxygen Saturation 97% 05/31/2016 12:39 PM FLEET SALES MANAGER Inhaled Oxygen Concentration - - Weight 81.9 kg (180 lb 8 oz) 05/28/2016 9:03 AM FLEET SALES MANAGER Height 170.2 cm (5' 7) 05/28/2016 9:03 AM FLEET SALES MANAGER Body Mass Index 28.27 05/28/2016 9:03 AM FLEET SALES MANAGER Plan of Treatment Not on file Care Teams Sewer Pipe Press Operator Relationship Specialty Start Date End Date No Ref-Primary, Physician PCP - General 05/31/16
[2023-08-29 02:18] VITALS: BP 135/74; PULSE 85; RESP 18; TEMP 36.7; O2SAT 99
[2023-08-29 02:20] VITALS: BP 135/74; PULSE 85; RESP 18; TEMP 36.7
== END 2023-08-29 02:20 | disposition home or self-care (01) ==
LOC: ED 02:04
PROVIDERS: Emergency Provider Internal Medicine; PCP Internal Medicine
DX: M54.41 Lumbago with sciatica, right side (principal)
CPT/HCPCS: 96372; 99283; J1885

== ENCOUNTER 2024-07-20 15:14 | Outpatient (CLI) | payer BC, SELFPAY ==
--- NOTE | 2024-07-20 15:20 | CRLHL7_ITS ---
For Patients: As a result of the Century Cures Act, medical imaging exams and procedure reports are released immediately into your electronic medical record. You may view this report before your referring provider. If you have questions, please contact your health care provider. INDICATION: BILATERAL SCREENING MAMMOGRAM, ASYMPTOMATIC 48 Y/O FEMALE COMPARISON: 06/22/23, 06/24/22, 04/07/21 TECHNIQUE: CC and MLO views were obtained. These mammographic images have been obtained using full-field digital technique. These mammographic images were interpreted with the benefit of computer aided detection and tomosynthesis. BREAST COMPOSITION: The breasts are almost entirely fatty. FINDINGS: No suspicious findings. ASSESSMENT: BI-RADS 2 Benign RECOMMENDATION: Annual screening mammogram. A lay language report of this examination will be provided to the patient. Dictated by: Damon Maguire MD @ 07/21/2024 09:17:48 (Electronically Signed)
== END 2024-07-20 15:15 | disposition home or self-care (01) ==
PROVIDERS: PCP Internal Medicine; Visit Provider Nurse Practitioner
DX: Z12.31 Encounter for screening mammogram for malignant neoplasm of breast (principal)
CPT/HCPCS: 77063; 77067